=== PATIENT | male | born 1970 | race African-American/Black ===

== ENCOUNTER 2018-03-31 10:34 | Inpatient (IN) | payer OTHER ==
[2018-03-31 10:47] VITALS: BMI 19.9
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
[2018-03-31] MEDS ORDERED: MAGNESIUM HYDROX 2400MG/30ML ORAL SUSPENSION 30 ML CUP PO PRN (11:36)
[2018-03-31] MEDS ORDERED: MAG HYDROX/AL HYDROX/SIMETH 30 ML UNIT-DOSE CUP PO PRN (11:36)
[2018-03-31] MEDS ORDERED: IBUPROFEN 400 MG TABLET (FP) PO PRN (11:36)
[2018-03-31] MEDS ORDERED: chlordiazePOXIDE HCL 25 MG CAPSULE PO PRN (11:36)
[2018-03-31] MEDS ORDERED: P-EPHED 60MG/TRIPROLIDI 2.5MG TABLET PO PRN (11:36)
[2018-03-31] MEDS ORDERED: MAGNESIUM CITRATE 300 ML BOTTLE PO PRN (11:36)
[2018-03-31] MEDS ORDERED: NICOTINE POLACRILEX 2 MG GUM BUC PRN (11:36)
[2018-03-31] MEDS ORDERED: hydrOXYzine PAMOATE 25 MG CAPSULE (FP) PO PRN (11:36)
[2018-03-31] MEDS ORDERED: guaiFENesin/D-METHORPHAN HB 10 ML UNIT-DOSE CUPS PO PRN (11:36)
[2018-03-31] MEDS ORDERED: LOPERAMIDE HCL 2 MG CAPSULE PO PRN (11:36)
[2018-03-31] MEDS ORDERED: MENTHOL/PHENOL 1 EACH UD MM PRN (11:36)
[2018-03-31] MEDS: chlordiazePOXIDE HCL 25 MG CAPSULE PO SCH ×2 (17:21→22:23)
[2018-03-31] MEDS: THIAMINE HCL 100 MG TABLET (FP) PO SCH (22:23)
[2018-03-31] MEDS: MELATONIN 5 MG TABLETS PO PRN (22:23)
[2018-04-01] MEDS: chlordiazePOXIDE HCL 25 MG CAPSULE PO SCH ×4 (05:41→22:23)
[2018-04-01] MEDS: ACETAMINOPHEN 325 MG TABLET (FP) PO PRN (08:34)
[2018-04-01 10:34] LABS: ALBUMIN 3.6 g/dl (3.4-5.0); ALK PHOS 90 U/L (45-117); ANION GAP 7 MMOL/L (8-16); BILIRUBIN,TOTAL 0.6 mg/dL (0.2-1); BLOOD UREA NITROGEN 12 mg/dL (7-18); CALCIUM 8.9 mg/dL (8.5-10.1); CHLORIDE 107 mmol/L (98-107); CO2 25 mmol/L (21-32); CREATININE 0.9 mg/dL (0.55-1.3); GLUCOSE,RANDOM 106 mg/dL (74-106); SGOT/AST 25 U/L (15-37); SGPT/ALT 17 U/L (13-61); SODIUM 139 mmol/L (136-145); TOT PROT 7.5 g/dl (6.4-8.2)
[2018-04-01 11:00] LABS: HEMATOCRIT 38.4 % (35.4-49); HEMOGLOBIN 12.5 GM/dL (11.7-16.9); MCH 31.6 pg (25.7-33.7); MCHC 32.5 g/dl (32.0-35.9); MEAN CELL VOLUME 97.4 fl (80-96); MEAN PLT VOLUME 8.6 fl (7.5-11.1); PLATELET COUNT 192 K/MM3 (134-434); RBC 3.94 M/mm3 (4.00-5.60); RDW 13.7 % (11.9-15.9); WHITE BLOOD COUNT 5.4 K/mm3 (4.0-10.0)
[2018-04-01] MEDS: PRENATAL VITAMINS W/ FOLIC ACID TABLET (FP) PO SCH (11:03)
--- NOTE | 2018-04-01 15:38 | PN ---
S CIWA - CIWA Score Nausea/Vomitin Muscle Tremors: 4-Moderate,w/Arms Extend Anxiety: 4-Mod. Anxious/Guarded Agitation: 2 Paroxysmal Sweats: 3 Orientation: 0-Oriented Tacttile Disturbances: 1-Very Mild Itch/Numbness Auditory Disturbances: 0-None Visual Disturbances: 0-None Headache: 1-Very Mild CIWA-Ar Total Score: 17 BHS Progress Note (SOAP) Subjective: Sweating, headache 11/17, interrupted sleep Objective: 04/01/18 15:37 Last Vital Signs Temp Pulse Resp BP Pulse Ox 97.1 F L 104 H 16 124/79 04/01/18 13:43 04/01/18 13:43 04/01/18 13:43 04/01/18 13:43 Laboratory Tests 04/01/18 04/01/18 04/01/18 07:30 07:30 07:30 WBC 5.4 RBC 3.94 L Hgb 12.5 Hct 38.4 MCV 97.4 H MCH 31.6 MCHC 32.5 RDW 13.7 Plt Count 192 D MPV 8.6 Sodium 139 Potassium 4.0 Chloride 107 Carbon Dioxide 25 Anion Gap 7 L BUN 12 Creatinine 0.9 Creat Clearance w eGFR > 60 Random Glucose 106 Calcium 8.9 Total Bilirubin 0.6 AST 25 ALT 17 Alkaline Phosphatase 90 Total Protein 7.5 Albumin 3.6 RPR Titer Nonreactive Labs reviewed Assessment: 04/01/18 15:38 Withdrawal symptoms Plan: Continue detox Encouraged PO water hydration
[2018-04-01] MEDS: MELATONIN 5 MG TABLETS PO PRN (22:23)
[2018-04-01] MEDS: THIAMINE HCL 100 MG TABLET (FP) PO SCH (22:23)
[2018-04-02] MEDS: chlordiazePOXIDE HCL 25 MG CAPSULE PO SCH ×2 (05:17→10:41)
[2018-04-02] MEDS: ACETAMINOPHEN 325 MG TABLET (FP) PO PRN ×2 (09:24→13:14)
[2018-04-02] MEDS: PRENATAL VITAMINS W/ FOLIC ACID TABLET (FP) PO SCH (10:41)
--- NOTE | 2018-04-02 17:03 | PN ---
[facility] CIWA - CIWA Score Nausea/Vomitin-Mild Nausea/No Vomiting Muscle Tremors: 3 Anxiety: 3 Agitation: 2 Paroxysmal Sweats: 3 Orientation: 0-Oriented Tacttile Disturbances: 0-None Auditory Disturbances: 0-None Visual Disturbances: 0-None Headache: 0-None Present CIWA-Ar Total Score: 12 S Progress Note (SOAP) Subjective: sweats sleep disturbance Objective: 04/02/18 17:00 In bed sleeping arousable to verbal stimuli' A & O x 3 Vital Signs Temperature 96.6 F L 04/02/18 13:07 Pulse Rate 99 H 04/02/18 13:07 Respiratory Rate 16 04/02/18 13:07 Blood Pressure 133/83 04/02/18 13:07 O2 Sat by Pulse Oximetry (%) Laboratory Last Values WBC 5.4 K/mm3 (4.0-10.0) 04/01/18 07:30 RBC 3.94 M/mm3 (4.00-5.60) L 04/01/18 07:30 Hgb 12.5 GM/dL (11.7-16.9) 04/01/18 07:30 Hct 38.4 % (35.4-49) 04/01/18 07:30 MCV 97.4 fl (80-96) H 04/01/18 07:30 MCH 31.6 pg (25.7-33.7) 04/01/18 07:30 MCHC 32.5 g/dl (32.0-35.9) 04/01/18 07:30 RDW 13.7 % (11.9-15.9) 04/01/18 07:30 Plt Count 192 K/MM3 (134-434) D 04/01/18 07:30 MPV 8.6 fl (7.5-11.1) 04/01/18 07:30 Sodium 139 mmol/L (136-145) 04/01/18 07:30 Potassium 4.0 mmol/L (3.5-5.1) 04/01/18 07:30 Chloride 107 mmol/L (98-107) 04/01/18 07:30 Carbon Dioxide 25 mmol/L (21-32) 04/01/18 07:30 Anion Gap 7 MMOL/L (8-16) L 04/01/18 07:30 BUN 12 mg/dL (7-18) 04/01/18 07:30 Creatinine 0.9 mg/dL (0.55-1.3) 04/01/18 07:30 Creat Clearance w eGFR > 60 (>60) 04/01/18 07:30 Random Glucose 106 mg/dL (74-106) 04/01/18 07:30 Calcium 8.9 mg/dL (8.5-10.1) 04/01/18 07:30 Total Bilirubin 0.6 mg/dL (0.2-1) 04/01/18 07:30 AST 25 U/L (15-37) 04/01/18 07:30 ALT 17 U/L (13-61) 04/01/18 07:30 Alkaline Phosphatase 90 U/L (45-117) 04/01/18 07:30 Total Protein 7.5 g/dl (6.4-8.2) 04/01/18 07:30 Albumin 3.6 g/dl (3.4-5.0) 04/01/18 07:30 RPR Titer Nonreactive (NONREACTIVE) 04/01/18 07:30 pending UA Assessment: 04/02/18 17:01 withdrawal sx Plan: continue detox
[2018-04-02] MEDS: chlordiazePOXIDE 5 MG CAPSULE PO SCH ×2 (17:24→22:46)
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
[2018-04-02] MEDS: THIAMINE HCL 100 MG TABLET (FP) PO SCH (22:46)
[2018-04-02] MEDS: MIRTAZAPINE 15 MG TABLET (FP) PO SCH (22:46)
[2018-04-03] MEDS: chlordiazePOXIDE 5 MG CAPSULE PO SCH ×2 (06:41→10:10)
[2018-04-03] MEDS: PRENATAL VITAMINS W/ FOLIC ACID TABLET (FP) PO SCH (10:10)
--- NOTE | 2018-04-03 14:43 | PN ---
S Progress Note (SOAP) Subjective: Interrupted sleep, anxious, feeling depressed (denies SI/HI, AH, VH), stated he was seen by psychiatrist yesterday and started on medication Objective: 04/03/18 14:42 Last Vital Signs Temp Pulse Resp BP Pulse Ox 97.1 F L 117 H 20 123/85 04/03/18 13:16 04/03/18 13:16 04/03/18 13:16 04/03/18 13:16 Laboratory Tests 04/01/18 04/01/18 04/01/18 07:30 07:30 07:30 WBC 5.4 RBC 3.94 L Hgb 12.5 Hct 38.4 MCV 97.4 H MCH 31.6 MCHC 32.5 RDW 13.7 Plt Count 192 D MPV 8.6 Sodium 139 Potassium 4.0 Chloride 107 Carbon Dioxide 25 Anion Gap 7 L BUN 12 Creatinine 0.9 Creat Clearance w eGFR > 60 Random Glucose 106 Calcium 8.9 Total Bilirubin 0.6 AST 25 ALT 17 Alkaline Phosphatase 90 Total Protein 7.5 Albumin 3.6 RPR Titer Nonreactive Labs reviewed Assessment: 04/03/18 14:43 Withdrawal symptoms Plan: Continue detox Encouraged PO water intake
[2018-04-03] MEDS: chlordiazePOXIDE HCL 10 MG CAPSULE PO SCH ×2 (17:40→22:09)
[2018-04-03] MEDS: THIAMINE HCL 100 MG TABLET (FP) PO SCH (22:09)
[2018-04-03] MEDS: MELATONIN 5 MG TABLETS PO PRN (22:09)
[2018-04-03] MEDS: MIRTAZAPINE 15 MG TABLET (FP) PO SCH (22:09)
[2018-04-04] MEDS: chlordiazePOXIDE HCL 10 MG CAPSULE PO SCH (05:48)
[2018-04-04 06:34] VITALS: BP 124/74; PULSE 78; TEMP 97.1
--- NOTE | 2018-04-04 17:09 | DS ---
[facility] Detox Discharge Summary Admission Date: 03/31/18 Discharge Date: 04/04/18 - History Present History: Alcohol Dependence, Cannabis Dependence Additional Comments: PATIENT REFERRED TO [facility] OUTPAT[facility] ([place], [place]) FOR AFTERCARE. PATIENT WAS DISCHARGED FROM DETOX UNIT IN STABLE MEDICAL CONDITION. Pertinent Past History: HTN, History of Anemia, History of Depression, G.E.R.D., Nicotine Dependence. - Physical Exam Results Vital Signs: Vital Signs Temperature 97.1 F L 04/04/18 06:33 Pulse Rate 78 04/04/18 06:33 Respiratory Rate 18 04/04/18 06:33 Blood Pressure 124/74 04/04/18 06:33 O2 Sat by Pulse Oximetry (%) Pertinent Admission Physical Exam Findings: WITHDRAWAL SYMPTOMS. Laboratory Tests 04/01/18 04/01/18 04/01/18 07:30 07:30 07:30 WBC 5.4 RBC 3.94 L Hgb 12.5 Hct 38.4 MCV 97.4 H MCH 31.6 MCHC 32.5 RDW 13.7 Plt Count 192 D MPV 8.6 Sodium 139 Potassium 4.0 Chloride 107 Carbon Dioxide 25 Anion Gap 7 L BUN 12 Creatinine 0.9 Creat Clearance w eGFR > 60 Random Glucose 106 Calcium 8.9 Total Bilirubin 0.6 AST 25 ALT 17 Alkaline Phosphatase 90 Total Protein 7.5 Albumin 3.6 RPR Titer Nonreactive LABS NOTED. - Treatment Hospital Course: Detox Protocol Followed, Detoxed Safely, Responded well, Discharged Condition Good Patient has Accepted a Rehab Referral to: PT. REFERRED TO '[facility] ([place], [place] FOR AFTERCARE. - Medication Discharge Medications: Ambulatory Orders Sertraline HCl [Zoloft -] 50 mg PO DAILY #30 tablet 10/27/17 - Diagnosis (1) Alcohol dependence with uncomplicated withdrawal Status: Acute (2) GERD (gastroesophageal reflux disease) Status: Chronic Qualifiers: Esophagitis presence: esophagitis presence not specified Qualified Code(s) : K21.9 - Gastro-esophageal reflux disease without esophagitis (3) HTN (hypertension) Status: Chronic Qualifiers: Hypertension type: unspecified Qualified Code(s): I10 - Essential (primary ) hypertension (4) Nicotine dependence Status: Chronic Qualifiers: Nicotine product type: cigarettes Substance use status: uncomplicated Qualified Code(s): F17.210 - Nicotine dependence, cigarettes, uncomplicated (5) Cannabis dependence, uncomplicated Status: Chronic (6) History of anemia Status: Chronic - AMA Did Patient Leave Against Medical Advice: No
== END 2018-04-04 09:05 | disposition home or self-care (01) | DRG 775 ==
LOC: YASAS 10:34 → Y3N 11:40
PROC: HZ2ZZZZ Detoxification Services for Substance Abuse Treatment (ICD-10-PCS; principal; 2018-03-31)
DX: F10.230 Alcohol dependence with withdrawal, uncomplicated (principal); F12.20 Cannabis dependence, uncomplicated; F17.210 Nicotine dependence, cigarettes, uncomplicated; F31.9 Bipolar disorder, unspecified; F19.24 Other psychoactive substance dependence with psychoactive substance-induced mood disorder; I10 Essential (primary) hypertension; K21.9 Gastro-esophageal reflux disease without esophagitis; G47.00 Insomnia, unspecified; Z59.0 Homelessness
CPT/HCPCS: 36415; 80053; 85027; 86593

== ENCOUNTER 2018-05-11 11:47 | Inpatient (IN) | payer OTHER ==
[2018-05-11 12:23] VITALS: BMI 19.3
--- NOTE | 2018-05-11 17:01 | HP ---
CIWA Score Nausea/Vomitin-Mild Nausea/No Vomiting Muscle Tremors: 3 Anxiety: 3 Agitation: 2 Paroxysmal Sweats: 2 Orientation: 0-Oriented Tacttile Disturbances: 0-None Auditory Disturbances: 0-None Visual Disturbances: 0-None Headache: 2-Mild CIWA-Ar Total Score: 13 - Admission Criteria OASAS Guidelines: Admission for Medically Managed Detox: Requires at least one of the followin. CIWA greater than 12 2. Seizures within the past 24 hours 3. Delirium tremens within the past 24 hours 4. Hallucinations within the past 24 hours 5. Acute intervention needed for co occurring medical disorder 6. Acute intervention needed for co occurring psychiatric disorder 7. Severe withdrawal that cannot be handled at a lower level of care (continued vomiting, continued diarrhea, abnormal vital signs) requiring intravenous medication and/or fluids 8. Patient presents the following: CIWA greater than 12 Admission Criteria Met: Admission criteria met Admission ROS [facility] Chief Complaint: "here for detox for alcohol, THC" 47 yo with no medical problems, has no PCP. Pt is homeless from [place]. Says he has depression- not taking meds. Pt states he was recently diagnosed with pneumonia- had only one of two antibiotics ordered- azithromycin and could take cefodoxime alcohol- 3 6 packs of beer, occ other types of liquour- no h/o seizures, DT's THC- every day DUR- no controlled meds AMANDA- 0.249, THC and BZO in urine Allergies/Adverse Reactions: Allergies Allergy/AdvReac Type Severity Reaction Status Date / Time No Known Allergies Allergy Verified 05/11/18 15:28 - Ebola screening Have you traveled outside of the country in the last 21 days: No Have you had contact with anyone from an Ebola affected area: No Have you been sick,other than usual withdrawal symptoms: No Do you have a fever: No - Review of Systems Constitutional: No Symptoms Reported EENT: reports: No Symptoms Reported Respiratory: reports: No Symptoms reported Cardiac: reports: No Symptoms Reported GI: reports: No Symptoms Reported : reports: No Symptoms Reported Musculoskeletal: reports: No Symptoms Reported Integumentary: reports: Lesions, Pruritus (itchy, red, papular lesions on back, arms.) Neuro: reports: No Symptoms reported Endocrine: reports: No Symptoms Reported Hematology: reports: No Symptoms Reported Psychiatric: reports: No Sypmtoms Reported Other Systems: Reviewed and Negative Patient History - Patient Medical History Hx Anemia: No Hx Asthma: No Hx Chronic Obstructive Pulmonary Disease (COPD): No Hx Cancer: No Hx Cardiac Disorders: No Hx Hypertension: No Hx Hypercholesterolemia: No Hx Pacemaker: No HX Cerebrovascular Accident: No Hx Seizures: No Hx Diabetes: No Hx Gastrointestinal Disorders: Yes (acid reflux) Hx Liver Disease: No Hx Genitourinary Disorders: No Hx Sexually Transmitted Disorders: No Hx Renal Disease (ESRD): No Hx Thyroid Disease: No Hx Human Immunodeficiency Virus (HIV): No (NEGATIVE HX) Hx Hepatitis C: No Hx Depression: Yes Hx Suicide Attempt: No Hx Bipolar Disorder: Yes (i have mood swings) Hx Schizophrenia: No Other Medical History: pt was recently treated pneumonia - Patient Surgical History Past Surgical History: Yes Hx Neurologic Surgery: No Hx Cataract Extraction: No Hx Cardiac Surgery: No Hx Lung Surgery: No Hx Breast Surgery: No Hx Breast Biopsy: No Hx Abdominal Surgery: No Hx Appendectomy: Yes Hx Cholecystectomy: No Hx Genitourinary Surgery: No Hx Section: No Hx Orthopedic Surgery: No Other Surgical History: tonsilectomy at age 7/left eye trauma in 2017 Anesthesia Reaction: No - PPD History Previous Implant?: Yes Documented Results: Negative w/proof Implanted On Prior R Admission?: Yes Date: 10/28/17 Results: 0 mm - Smoking Cessation Smoking history: Current some day smoker Have you smoked in the past 12 months: Yes Aproximately how many cigarettes per day: 3 Hx Chewing Tobacco Use: No Initiated information on smoking cessation: Yes 'Breaking Loose' booklet given: 05/11/18 - Substances Abused Alcohol-beer Route: Oral Frequency: Daily Amount used: 2-63 6 pks. Age of first use: 17 Date of Last Use: 05/11/18 Marijuana Route: Smoking Frequency: Daily Amount used: $10 Age of first use: 10 Date of Last Use: 05/10/18 Family Disease History - Family Disease History Family Disease History: Diabetes: Father (HTN/ALCOHOLISM-), Mother (HTN/ ALCOHOLISM-), Other: Grandparent (-ALZHEIMERSDECEASED), Father, Mother Admission Physical Exam [facility] - Vital Signs Vital Signs: Vital Signs - 24 hr 05/11/18 12:21 Temperature 97.9 F Pulse Rate 121 H Respiratory 18 Rate Blood Pressure 105/76 - Physical General Appearance: Yes: Disheveled, Thin, Irritable HEENTM: Yes: Within Normal Limits, Hearing grossly Normal, Normal Voice Respiratory: Yes: Within Normal Limits Neck: Yes: Within Normal Limits Cardiology: Yes: Within Normal Limits Abdominal: Yes: Within Normal Limits Genitourinary: Yes: Within Normal Limits Extremities: Yes: Within Normal Limits Neurological: Yes: Within Normal Limits - Diagnostic (1) Scabies Current Visit: Yes Status: Acute (2) Alcohol dependence with uncomplicated withdrawal Current Visit: No Status: Acute (3) Cannabis dependence, uncomplicated Current Visit: No Status: Chronic [facility]HS Breath Alcohol Content Breath Alcohol Content: 0.249 Urine Drug Screen - Results Drug Screen Negative: No Urine Drug Screen Results: THC-Marijuana, BZO-Benzodiazepines
[2018-05-11] MEDS ORDERED: chlordiazePOXIDE HCL 25 MG CAPSULE PO PRN (17:18)
[2018-05-11] MEDS ORDERED: MAG HYDROX/AL HYDROX/SIMETH 30 ML UNIT-DOSE CUP PO PRN (17:19)
[2018-05-11] MEDS ORDERED: guaiFENesin/D-METHORPHAN HB 10 ML UNIT-DOSE CUPS PO PRN (17:19)
[2018-05-11] MEDS ORDERED: MAGNESIUM CITRATE 300 ML BOTTLE PO PRN (17:19)
[2018-05-11] MEDS ORDERED: NICOTINE POLACRILEX 4 MG GUM BC PRN (17:19)
[2018-05-11] MEDS ORDERED: MAGNESIUM HYDROX 2400MG/30ML ORAL SUSPENSION 30 ML CUP PO PRN (17:19)
[2018-05-11] MEDS ORDERED: MENTHOL/PHENOL 1 EACH UD MM PRN (17:19)
[2018-05-11] MEDS ORDERED: LOPERAMIDE HCL 2 MG CAPSULE PO PRN (17:19)
[2018-05-11] MEDS ORDERED: P-EPHED 60MG/TRIPROLIDI 2.5MG TABLET PO PRN (17:19)
[2018-05-11] MEDS ORDERED: chlordiazePOXIDE HCL 25 MG CAPSULE PO ONE (17:45)
[2018-05-11] MEDS ORDERED: PERMETHRIN 5% TOPICAL CREAM 60 GM TUBE TP ONE (19:00)
[2018-05-11] MEDS: THIAMINE HCL 100 MG TABLET (FP) PO SCH (23:34)
[2018-05-11] MEDS: chlordiazePOXIDE HCL 25 MG CAPSULE PO SCH (23:34)
[2018-05-12] MEDS: chlordiazePOXIDE HCL 25 MG CAPSULE PO SCH ×4 (07:18→22:12)
[2018-05-12 10:31] LABS: HEMATOCRIT 36.4 % (35.4-49); HEMOGLOBIN 12.2 GM/dL (11.7-16.9); MCH 32.6 pg (25.7-33.7); MCHC 33.6 g/dl (32.0-35.9); MEAN CELL VOLUME 97.3 fl (80-96); MEAN PLT VOLUME 8.8 fl (7.5-11.1); PLATELET COUNT 118 K/MM3 (134-434); RBC 3.74 M/mm3 (4.00-5.60); RDW 14.1 % (11.9-15.9); WHITE BLOOD COUNT 2.6 K/mm3 (4.0-10.0)
[2018-05-12] MEDS: PRENATAL VITAMINS W/ FOLIC ACID TABLET (FP) PO SCH (10:54)
[2018-05-12 10:57] LABS: ALK PHOS 92 U/L (45-117); ANION GAP 12 MMOL/L (8-16); BILIRUBIN,TOTAL 0.6 mg/dL (0.2-1); BLOOD UREA NITROGEN 6 mg/dL (7-18); CHLORIDE 108 mmol/L (98-107); CO2 23 mmol/L (21-32); CREATININE 0.8 mg/dL (0.55-1.3); GLUCOSE,RANDOM 75 mg/dL (74-106); POTASSIUM 4.1 mmol/L (3.5-5.1); SGOT/AST 57 U/L (15-37); SGPT/ALT 32 U/L (13-61); SODIUM 143 mmol/L (136-145); TOT PROT 7.9 g/dl (6.4-8.2)
--- NOTE | 2018-05-12 13:44 | PN ---
S CIWA - CIWA Score Nausea/Vomitin-Mild Nausea/No Vomiting Muscle Tremors: 2 Anxiety: 1-Mildly Anxious Agitation: 1-Slight > Activity Paroxysmal Sweats: 2 Orientation: 0-Oriented Tacttile Disturbances: 1-Very Mild Itch/Numbness Auditory Disturbances: 1-Very Mild Visual Disturbances: 1-Very Mild Sensitivity Headache: 3-Moderate CIWA-Ar Total Score: 13 BHS Progress Note (SOAP) Subjective: FATIGUE,HEADACHE,GENERALIZED BODY ACHE,CHILLS AND ANXIETY Objective: 05/12/18 13:43 Last Vital Signs Temp Pulse Resp BP Pulse Ox 97.9 F 86 18 143/93 05/12/18 09:25 05/12/18 09:25 05/12/18 09:25 05/12/18 09:25 Laboratory Last Values WBC 2.6 K/mm3 (4.0-10.0) L 05/12/18 08:00 RBC 3.74 M/mm3 (4.00-5.60) L 05/12/18 08:00 Hgb 12.2 GM/dL (11.7-16.9) 05/12/18 08:00 Hct 36.4 % (35.4-49) 05/12/18 08:00 MCV 97.3 fl (80-96) H 05/12/18 08:00 MCH 32.6 pg (25.7-33.7) 05/12/18 08:00 MCHC 33.6 g/dl (32.0-35.9) 05/12/18 08:00 RDW 14.1 % (11.9-15.9) 05/12/18 08:00 Plt Count 118 K/MM3 (134-434) L D 05/12/18 08:00 MPV 8.8 fl (7.5-11.1) 05/12/18 08:00 Sodium 143 mmol/L (136-145) 05/12/18 08:00 Potassium 4.1 mmol/L (3.5-5.1) 05/12/18 08:00 Chloride 108 mmol/L (98-107) H 05/12/18 08:00 Carbon Dioxide 23 mmol/L (21-32) 05/12/18 08:00 Anion Gap 12 MMOL/L (8-16) 05/12/18 08:00 BUN 6 mg/dL (7-18) L 05/12/18 08:00 Creatinine 0.8 mg/dL (0.55-1.3) 05/12/18 08:00 Creat Clearance w eGFR > 60 (>60) 05/12/18 08:00 Random Glucose 75 mg/dL (74-106) 05/12/18 08:00 Calcium 9.0 mg/dL (8.5-10.1) 05/12/18 08:00 Total Bilirubin 0.6 mg/dL (0.2-1) 05/12/18 08:00 AST 57 U/L (15-37) H 05/12/18 08:00 ALT 32 U/L (13-61) 05/12/18 08:00 Alkaline Phosphatase 92 U/L (45-117) 05/12/18 08:00 Total Protein 7.9 g/dl (6.4-8.2) 05/12/18 08:00 Albumin 4.0 g/dl (3.4-5.0) 05/12/18 08:00 LABS NOTED Assessment: 05/12/18 13:44 WITHDRAWAL SX Plan: CONTINUE DETOX
[2018-05-12] MEDS: IBUPROFEN 400 MG TABLET (FP) PO PRN (13:57)
--- NOTE | 2018-05-12 16:19 | CONSULT ---
[facility] Psychiatric Consult - Data Date of interview: 05/12/18 Admission source: [facility] Identifying data: This is one of multiple admissions to [facility] for this 47 y/ o AA male, now retained on [facility] for detoxification (alcohol, cannabis). Patient is single without dependents, homeless, unemployed and supported on Public Assistance. Substance Abuse History: Discussed in this session. Patient confirms the use of alcohol, nicotine and cannabis. Details in current [facility] report as follows : Smoking history: Current some day smoker. Have you smoked in the past 12 months : Yes. Aproximately how many cigarettes per day: 3. Hx Chewing Tobacco Use: No. Initiated information on smoking cessation: Yes. 'Breaking Loose' booklet given: 05/11/18. - Substances Abused. Alcohol-beer. Route: Oral. Frequency: Daily. Amount used: 2-63 6 pks. Age of first use: 17. Date of Last Use: 05/11/18. Marijuana. Route: Smoking. Frequency: Daily. Amount used: $10. Age of first use: 10. Date of Last Use: 05/10/18 Medical History: Remarkable for anemia, GERD, antecedent of trauma to left eye ( underwent eye surgery), hypertension and history of appendectomy + tonsillectomy (childhood). Psychiatric History: Patient is questionable historian. Denies history of psychiatric hospitalizations but admits to having received treatment, in the past, for " depression " at another substance abuse treatment institution. Mr Pastrana denies having contact with psychiatrist/therapists. off medications for months. Patient denies history of suicide attempts. Physical/Sexual Abuse/Trauma History: Not discussed (patient uncooperative). Additional Comment: Urine Drug Screen Results: THC-Marijuana, BZO- Benzodiazepines. Noted. Mental Status Exam - Mental Status Exam Alert and Oriented to: Time, Place, Person Cognitive Function: Grossly Intact Patient Appearance: Unkempt, Disheveled Mood: Angry, Nervous, Withdrawn, Irritable Affect: Mood Congruent Patient Behavior: Fatigued, Uncooperative Speech Pattern: Clear Voice Loudness: Normal Thought Process: Goal Oriented Thought Disorder: Not Present Hallucinations: Denies Suicidal Ideation: Denies Homicidal Ideation: Denies Insight/Judgement: Poor Sleep: Fair Appetite: Good (empty foodtray seen at bedside) Gait/Station: Other (not observed ; observed resting in bed) Psychiatric Findings - Problem List ([place] 1, 2,3) (1) Alcohol dependence with uncomplicated withdrawal Current Visit: Yes Status: Acute (2) Cannabis dependence, uncomplicated Current Visit: Yes Status: Chronic (3) Nicotine dependence Current Visit: Yes Status: Chronic Qualifiers: Nicotine product type: cigarettes Substance use status: uncomplicated Qualified Code(s): F17.210 - Nicotine dependence, cigarettes, uncomplicated (4) Substance induced mood disorder Current Visit: Yes Status: Chronic - Initial Treatment Plan Initial Treatment Plan: Psychoeducation is not suitable at this time (patient is angry, irritable). Deferred until patient gets cooperative with staff. Sleep hygiene. Detoxification. Support. AA meetings. Observation.
[2018-05-12] MEDS: THIAMINE HCL 100 MG TABLET (FP) PO SCH (22:12)
[2018-05-12] MEDS: MELATONIN 5 MG TABLETS PO PRN (22:12)
[2018-05-13] MEDS: chlordiazePOXIDE HCL 25 MG CAPSULE PO SCH ×3 (06:17→17:31)
[2018-05-13] MEDS: ACETAMINOPHEN 325 MG TABLET (FP) PO PRN ×2 (08:34→17:33)
[2018-05-13] MEDS: PRENATAL VITAMINS W/ FOLIC ACID TABLET (FP) PO SCH (10:28)
--- NOTE | 2018-05-13 13:23 | PN ---
S CIWA - CIWA Score Muscle Tremors: None Anxiety: 0-No Anxiety, at Ease Agitation: 0-Normal Activity Paroxysmal Sweats: No Perspiration Orientation: 0-Oriented Tacttile Disturbances: 0-None Auditory Disturbances: 0-None Visual Disturbances: 0-None Headache: 0-None Present BHS Progress Note (SOAP) Subjective: pt walking in unit, no complaints O: Vital Signs - 24 hr 05/12/18 05/12/18 05/12/18 13:30 13:58 14:00 Temperature 97.9 F Pulse Rate 74 76 76 Respiratory 16 Rate Blood Pressure 118/69 05/12/18 05/12/18 05/12/18 14:30 15:00 15:30 Temperature Pulse Rate 75 78 86 Respiratory Rate Blood Pressure 05/12/18 05/12/18 05/12/18 16:00 16:30 17:00 Temperature Pulse Rate 82 76 77 Respiratory 20 20 20 Rate Blood Pressure 05/12/18 05/12/18 05/12/18 17:30 17:43 18:00 Temperature 97.7 F Pulse Rate 78 76 74 Respiratory 20 20 20 Rate Blood Pressure 133/79 05/12/18 05/12/18 05/13/18 18:30 22:22 07:24 Temperature 97.7 F 97.7 F Pulse Rate 72 73 66 Respiratory 20 16 18 Rate Blood Pressure 148/89 121/76 05/13/18 09:37 Temperature 98.6 F Pulse Rate 75 Respiratory 16 Rate Blood Pressure 159/102 H Laboratory Tests 05/12/18 05/12/18 05/12/18 08:00 08:00 08:00 WBC 2.6 L RBC 3.74 L Hgb 12.2 Hct 36.4 MCV 97.3 H MCH 32.6 MCHC 33.6 RDW 14.1 Plt Count 118 L D MPV 8.8 Sodium 143 Potassium 4.1 Chloride 108 H Carbon Dioxide 23 Anion Gap 12 BUN 6 L Creatinine 0.8 Creat Clearance w eGFR > 60 Random Glucose 75 Calcium 9.0 Total Bilirubin 0.6 AST 57 H ALT 32 Alkaline Phosphatase 92 Total Protein 7.9 Albumin 4.0 RPR Titer Nonreactive BP intermittently high a/p: continue alcohol detox protocol continue monitor BP
[2018-05-13] MEDS: chlordiazePOXIDE 5 MG CAPSULE PO SCH (22:09)
[2018-05-13] MEDS: THIAMINE HCL 100 MG TABLET (FP) PO SCH (22:09)
[2018-05-13] MEDS: MELATONIN 5 MG TABLETS PO PRN (22:09)
[2018-05-14] MEDS: chlordiazePOXIDE 5 MG CAPSULE PO SCH ×3 (05:07→17:12)
[2018-05-14] MEDS: IBUPROFEN 400 MG TABLET (FP) PO PRN (08:37)
[2018-05-14] MEDS: PRENATAL VITAMINS W/ FOLIC ACID TABLET (FP) PO SCH (10:16)
--- NOTE | 2018-05-14 10:16 | PN ---
BHS Progress Note (SOAP) Subjective: feeling better sweats Objective: 05/14/18 10:15 Vital Signs Temperature 98.1 F 05/14/18 09:14 Pulse Rate 100 H 05/14/18 09:14 Respiratory Rate 18 05/14/18 09:14 Blood Pressure 112/74 05/14/18 09:14 O2 Sat by Pulse Oximetry (%) aaox3 ambulating no acute distress Assessment: 05/14/18 10:15 mild withdrawal sx Plan: continue detox increase fluids d/c in am
[2018-05-14] MEDS: MELATONIN 5 MG TABLETS PO PRN (22:23)
[2018-05-14] MEDS: chlordiazePOXIDE HCL 10 MG CAPSULE PO SCH (22:23)
[2018-05-14] MEDS: THIAMINE HCL 100 MG TABLET (FP) PO SCH (22:23)
[2018-05-15 00:31] LABS: URINE APPEARANCE CLEAR; URINE BILIRUBIN NEGATIVE (<2.0 mg/dL); URINE COLOR LTYELLOW; URINE GLUCOSE (UA) NEGATIVE (NEGATIVE); URINE KETONE NEGATIVE (NEGATIVE); URINE LEUK ESTERASE NEGATIVE (NEGATIVE); URINE NITRITE NEGATIVE (NEGATIVE); URINE PROTEIN NEGATIVE (NEGATIVE); URINE UROBILINOGEN NEGATIVE mg/dL (0.2-1.0)
[2018-05-15] MEDS: chlordiazePOXIDE HCL 10 MG CAPSULE PO SCH (05:44)
[2018-05-15 06:13] VITALS: BP 128/76; PULSE 67; TEMP 96.3
--- NOTE | 2018-05-15 09:20 | DS ---
[facility] Detox Discharge Summary Admission Date: 05/11/18 Discharge Date: 05/15/18 - History Present History: Alcohol Dependence, Cannabis Dependence - Physical Exam Results Vital Signs: Vital Signs Temperature 96.3 F L 05/15/18 06:00 Pulse Rate 67 05/15/18 06:00 Respiratory Rate 16 05/15/18 06:00 Blood Pressure 128/76 05/15/18 06:00 O2 Sat by Pulse Oximetry (%) - Treatment Hospital Course: Detox Protocol Followed, Detoxed Safely, Responded well, Discharged Condition Good, Rehab Referral Accepted - Diagnosis (1) Alcohol dependence with uncomplicated withdrawal Current Visit: Yes Status: Chronic (2) Cannabis dependence, uncomplicated Current Visit: Yes Status: Chronic (3) Nicotine dependence Current Visit: Yes Status: Chronic Qualifiers: Nicotine product type: cigarettes Substance use status: uncomplicated Qualified Code(s): F17.210 - Nicotine dependence, cigarettes, uncomplicated (4) Substance induced mood disorder Current Visit: Yes Status: Chronic (5) Bipolar disorder Current Visit: No Status: Chronic (6) GERD (gastroesophageal reflux disease) Current Visit: Yes Status: Chronic Qualifiers: Esophagitis presence: without esophagitis Qualified Code(s): K21.9 - Gastro -esophageal reflux disease without esophagitis (7) HTN (hypertension) Current Visit: Yes Status: Chronic Qualifiers: Hypertension type: unspecified Qualified Code(s): I10 - Essential (primary ) hypertension (8) History of depression Current Visit: No Status: Chronic - AMA Did Patient Leave Against Medical Advice: No (declined rehab; referred to new focus out patient )
== END 2018-05-15 08:50 | disposition home or self-care (01) | DRG 775 ==
LOC: YASAS 11:47 → Y6N 16:12
PROVIDERS: ADMIT Neuromusculoskeletal Medicine & OMM; ATTEND Neuromusculoskeletal Medicine & OMM
PROC: HZ2ZZZZ Detoxification Services for Substance Abuse Treatment (ICD-10-PCS; principal; 2018-05-11)
DX: F10.230 Alcohol dependence with withdrawal, uncomplicated (principal); F12.20 Cannabis dependence, uncomplicated; F17.210 Nicotine dependence, cigarettes, uncomplicated; F19.24 Other psychoactive substance dependence with psychoactive substance-induced mood disorder; F31.9 Bipolar disorder, unspecified; I10 Essential (primary) hypertension; K21.9 Gastro-esophageal reflux disease without esophagitis; Z59.0 Homelessness
CPT/HCPCS: 36415; 80053; 81003; 85027; 86593

== ENCOUNTER 2018-05-24 10:44 | Inpatient (IN) | payer OTHER ==
[2018-05-24 11:24] VITALS: BMI 19.5
--- NOTE | 2018-05-24 13:27 | HP ---
JULIEN DUMAS Rehab Assess/Revision - Admission History Admitted to Rehab from: Y [address] [place] [address] - Vital signs Vital Signs: Vital Signs Period Temp Pulse Resp BP Sys/Graham Pulse Ox Last 24 Hr 97.6 F 119 17 137/91 - Findings Detox History & Physical reviewed: Yes Concur with findings: Yes Inpatient Rehab Admission - Rehab Decision to Admit Inpatient rehab admission?: Yes - Initial Determination Are CD services needed?: Yes Free of communicable disease: Yes Not in need of hospitalization: Yes - Rehab Admission Criteria Previous failed treatment: Yes Poor recovery environment: Yes Comorbidities: Yes Lacks judgement: Yes Patient is meeting Inpatient Rehab admission criteria:: Yes
[2018-05-24] MEDS ORDERED: MAGNESIUM CITRATE 300 ML BOTTLE PO PRN (13:28)
[2018-05-24] MEDS ORDERED: guaiFENesin/D-METHORPHAN HB 10 ML UNIT-DOSE CUPS PO PRN (13:28)
[2018-05-24] MEDS ORDERED: MAG HYDROX/AL HYDROX/SIMETH 30 ML UNIT-DOSE CUP PO PRN (13:28)
[2018-05-24] MEDS ORDERED: P-EPHED 60MG/TRIPROLIDI 2.5MG TABLET PO PRN (13:28)
[2018-05-24] MEDS ORDERED: MENTHOL/PHENOL 1 EACH UD MM PRN (13:28)
[2018-05-24] MEDS ORDERED: NICOTINE POLACRILEX 4 MG GUM BUC PRN (13:28)
[2018-05-24] MEDS ORDERED: MAGNESIUM HYDROX 2400MG/30ML ORAL SUSPENSION 30 ML CUP PO PRN (13:28)
[2018-05-24] MEDS ORDERED: LOPERAMIDE HCL 2 MG CAPSULE PO PRN (13:28)
--- NOTE | 2018-05-24 13:36 | PN ---
[facility] Progress Note Note: pt was at [facility] 05/22/18 for c/o SOB and chest pain; pt had a chest x -ray was done and pt dx with PNA. pt is currently on doxycycline 100mg bid. pt has 6 days left of medication to continue to take.
[2018-05-24] MEDS: NICOTINE 7 MG/24 HOURS TOPICAL PATCH TD SCH (17:46)
[2018-05-24] MEDS: DOXYCYCLINE HYCLATE 100 MG TABLET PO SCH (21:20)
[2018-05-24] MEDS: THIAMINE HCL 100 MG TABLET (FP) PO SCH (21:20)
[2018-05-24] MEDS: MELATONIN 5 MG TABLETS PO PRN (21:21)
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
[2018-05-25] MEDS: DOXYCYCLINE HYCLATE 100 MG TABLET PO SCH ×2 (10:12→17:51)
[2018-05-25] MEDS: PRENATAL VITAMINS W/ FOLIC ACID TABLET (FP) PO SCH (10:12)
[2018-05-25] MEDS: NICOTINE 7 MG/24 HOURS TOPICAL PATCH TD SCH (10:12)
[2018-05-25 19:08] LABS: URINE APPEARANCE CLEAR; URINE BILIRUBIN NEGATIVE (<2.0 mg/dL); URINE COLOR COLORLESS; URINE GLUCOSE (UA) NEGATIVE (NEGATIVE); URINE KETONE NEGATIVE (NEGATIVE); URINE LEUK ESTERASE NEGATIVE (NEGATIVE); URINE NITRITE NEGATIVE (NEGATIVE); URINE PROTEIN NEGATIVE (NEGATIVE); URINE UROBILINOGEN NEGATIVE mg/dL (0.2-1.0)
[2018-05-25] MEDS: THIAMINE HCL 100 MG TABLET (FP) PO SCH (21:18)
[2018-05-25] MEDS: MELATONIN 5 MG TABLETS PO PRN (21:18)
[2018-05-26] MEDS: ACETAMINOPHEN 325 MG TABLET (FP) PO PRN ×2 (09:17→21:12)
[2018-05-26] MEDS: NICOTINE 7 MG/24 HOURS TOPICAL PATCH TD SCH (09:18)
[2018-05-26] MEDS: PRENATAL VITAMINS W/ FOLIC ACID TABLET (FP) PO SCH (09:18)
[2018-05-26] MEDS: DOXYCYCLINE HYCLATE 100 MG TABLET PO SCH ×2 (09:18→17:37)
[2018-05-26] MEDS: THIAMINE HCL 100 MG TABLET (FP) PO SCH (21:11)
[2018-05-26] MEDS: MELATONIN 5 MG TABLETS PO PRN (21:11)
[2018-05-27] MEDS: PRENATAL VITAMINS W/ FOLIC ACID TABLET (FP) PO SCH (09:46)
[2018-05-27] MEDS: NICOTINE 7 MG/24 HOURS TOPICAL PATCH TD SCH (09:46)
[2018-05-27] MEDS: DOXYCYCLINE HYCLATE 100 MG TABLET PO SCH ×2 (09:46→17:07)
[2018-05-27] MEDS: THIAMINE HCL 100 MG TABLET (FP) PO SCH (21:09)
[2018-05-27] MEDS: IBUPROFEN 400 MG TABLET (FP) PO PRN (21:10)
[2018-05-27] MEDS: MELATONIN 5 MG TABLETS PO PRN (21:54)
[2018-05-27] MEDS: hydrOXYzine PAMOATE 50 MG CAPSULE (FP) PO PRN (21:54)
[2018-05-28] MEDS: DOXYCYCLINE HYCLATE 100 MG TABLET PO SCH ×2 (09:27→17:32)
[2018-05-28] MEDS: PRENATAL VITAMINS W/ FOLIC ACID TABLET (FP) PO SCH (09:27)
[2018-05-28] MEDS: NICOTINE 7 MG/24 HOURS TOPICAL PATCH TD SCH (09:27)
[2018-05-28] MEDS: ACETAMINOPHEN 325 MG TABLET (FP) PO PRN ×2 (09:28→21:18)
[2018-05-28] MEDS: THIAMINE HCL 100 MG TABLET (FP) PO SCH (21:18)
[2018-05-28] MEDS: MELATONIN 5 MG TABLETS PO PRN (21:19)
[2018-05-29] MEDS: DOXYCYCLINE HYCLATE 100 MG TABLET PO SCH ×2 (09:44→17:53)
[2018-05-29] MEDS: NICOTINE 7 MG/24 HOURS TOPICAL PATCH TD SCH (09:44)
[2018-05-29] MEDS: PRENATAL VITAMINS W/ FOLIC ACID TABLET (FP) PO SCH (09:44)
[2018-05-29] MEDS: ACETAMINOPHEN 325 MG TABLET (FP) PO PRN ×2 (09:46→17:53)
[2018-05-29] MEDS: MELATONIN 5 MG TABLETS PO PRN (21:13)
[2018-05-29] MEDS: THIAMINE HCL 100 MG TABLET (FP) PO SCH (21:13)
[2018-05-29] MEDS: hydrOXYzine PAMOATE 50 MG CAPSULE (FP) PO PRN (21:14)
[2018-05-29] MEDS: IBUPROFEN 400 MG TABLET (FP) PO PRN (21:14)
[2018-05-30] MEDS: PRENATAL VITAMINS W/ FOLIC ACID TABLET (FP) PO SCH (09:55)
[2018-05-30] MEDS: NICOTINE 7 MG/24 HOURS TOPICAL PATCH TD SCH (09:55)
[2018-05-30] MEDS: DOXYCYCLINE HYCLATE 100 MG TABLET PO SCH (09:55)
[2018-05-30] MEDS: ACETAMINOPHEN 325 MG TABLET (FP) PO PRN (09:56)
[2018-05-30] MEDS: IBUPROFEN 400 MG TABLET (FP) PO PRN (17:51)
[2018-05-30] MEDS: hydrOXYzine PAMOATE 50 MG CAPSULE (FP) PO PRN (17:51)
[2018-05-30] MEDS: MELATONIN 5 MG TABLETS PO PRN (21:17)
[2018-05-30] MEDS: THIAMINE HCL 100 MG TABLET (FP) PO SCH (21:17)
[2018-05-31] MEDS: PRENATAL VITAMINS W/ FOLIC ACID TABLET (FP) PO SCH (09:58)
[2018-05-31] MEDS: IBUPROFEN 400 MG TABLET (FP) PO PRN ×2 (09:59→21:28)
[2018-05-31] MEDS: NICOTINE 7 MG/24 HOURS TOPICAL PATCH TD SCH (11:40)
[2018-05-31] MEDS: MELATONIN 5 MG TABLETS PO PRN (21:28)
[2018-05-31] MEDS: THIAMINE HCL 100 MG TABLET (FP) PO SCH (21:28)
[2018-06-01] MEDS: IBUPROFEN 400 MG TABLET (FP) PO PRN ×2 (06:52→15:48)
[2018-06-01] MEDS: PRENATAL VITAMINS W/ FOLIC ACID TABLET (FP) PO SCH (10:07)
[2018-06-01] MEDS: NICOTINE 7 MG/24 HOURS TOPICAL PATCH TD SCH (10:07)
[2018-06-01] MEDS: ACETAMINOPHEN 325 MG TABLET (FP) PO PRN (10:08)
[2018-06-01] MEDS: MELATONIN 5 MG TABLETS PO PRN (21:22)
[2018-06-01] MEDS: hydrOXYzine PAMOATE 50 MG CAPSULE (FP) PO PRN (21:22)
[2018-06-01] MEDS: THIAMINE HCL 100 MG TABLET (FP) PO SCH (21:22)
[2018-06-02 07:18] VITALS: BP 141/95; PULSE 68; TEMP 98
[2018-06-02] MEDS: ACETAMINOPHEN 325 MG TABLET (FP) PO PRN (09:56)
[2018-06-02] MEDS: NICOTINE 7 MG/24 HOURS TOPICAL PATCH TD SCH (09:57)
[2018-06-02] MEDS: PRENATAL VITAMINS W/ FOLIC ACID TABLET (FP) PO SCH (09:57)
--- NOTE | 2018-06-02 11:44 | PN ---
[facility] Progress Note Note: Patient was admitted to rehab on 05/24 with a scheduled date for discharge at the end of May. Patient is currently requesting early discharge in order to go home and pay his bills. He is adamant on leaving despite attempts to encourage completion of program. He has appointment set for 06/08 for outpatient program at [facility]. Information given to patient. He is in stable condition for discharge.
== END 2018-06-02 12:40 | disposition home or self-care (01) | DRG 772 ==
LOC: YASAS 10:44 → Y5N 15:22
PROVIDERS: ADMIT Neuromusculoskeletal Medicine & OMM; ATTEND Neuromusculoskeletal Medicine & OMM
PROC: HZ42ZZZ Group Counseling for Substance Abuse Treatment, Cognitive-Behavioral (ICD-10-PCS; principal; 2018-05-24)
DX: F10.20 Alcohol dependence, uncomplicated (principal); F12.20 Cannabis dependence, uncomplicated; F17.210 Nicotine dependence, cigarettes, uncomplicated; F19.24 Other psychoactive substance dependence with psychoactive substance-induced mood disorder; F19.282 Other psychoactive substance dependence with psychoactive substance-induced sleep disorder; I10 Essential (primary) hypertension; K21.9 Gastro-esophageal reflux disease without esophagitis; J18.9 Pneumonia, unspecified organism; Z86.2 Personal history of diseases of the blood and blood-forming organs and certain disorders involving the immune mechanism; Z59.0 Homelessness
CPT/HCPCS: 81003

== ENCOUNTER 2018-06-27 14:54 | Inpatient (IN) | payer OTHER ==
[2018-06-27 17:55] VITALS: BMI 20.2
--- NOTE | 2018-06-27 19:24 | HP ---
CIWA Score Nausea/Vomitin Muscle Tremors: 1-None Visible, but [place] Anxiety: 2 Agitation: 0-Normal Activity Paroxysmal Sweats: 2 Orientation: 0-Oriented Tacttile Disturbances: 2-Mild Itch/Numbness/Burn Auditory Disturbances: 0-None Visual Disturbances: 2-Mild Sensitivity Headache: 3-Moderate CIWA-Ar Total Score: 15 - Admission Criteria OASAS Guidelines: Admission for Medically Managed Detox: Requires at least one of the followin. CIWA greater than 12 2. Seizures within the past 24 hours 3. Delirium tremens within the past 24 hours 4. Hallucinations within the past 24 hours 5. Acute intervention needed for co occurring medical disorder 6. Acute intervention needed for co occurring psychiatric disorder 7. Severe withdrawal that cannot be handled at a lower level of care (continued vomiting, continued diarrhea, abnormal vital signs) requiring intravenous medication and/or fluids 8. Patient presents the following: CIWA greater than 12 Admission Criteria Met: Admission criteria met Admission [facility] Chief Complaint: " alcohol detox" Allergies/Adverse Reactions: Allergies Allergy/AdvReac Type Severity Reaction Status Date / Time No Known Allergies Allergy Verified 05/24/18 14:53 History of Present Illness: 47 yo male with hx of alcohol dependence is here seeking detox presents today for detox. Report was evaluated yesterday at [facility]t [facility]. Patient reports medical hx of HTN, depression and PTSD. Denies suicidal / homicidal ideation. Denies hx of seizures, reports hx of alcohol blackouts with last episode "few days ago." Last treatment [facility] 05/24/18 -06/02/18. Exam Limitations: No Limitations - Ebola screening Have you traveled outside of the country in the last 21 days: No Have you had contact with anyone from an Ebola affected area: No Have you been sick,other than usual withdrawal symptoms: No Do you have a fever: No - Review of Systems Constitutional: Chills, Loss of Appetite, Changes in sleep, Other (fatiguee) EENT: reports: No Symptoms Reported Respiratory: reports: No Symptoms reported Cardiac: reports: No Symptoms Reported GI: reports: Diarrhea, Nausea, Poor Appetite, Poor Fluid Intake, Vomiting : reports: No Symptoms Reported Musculoskeletal: reports: Other (generalize body aches) Integumentary: reports: No Symptoms Reported Neuro: reports: Headache, Numbness (both hands) Endocrine: reports: Increased Thirst Hematology: reports: No Symptoms Reported Psychiatric: reports: Orientated x3, Anxious Other Systems: Reviewed and Negative Patient History - Patient Medical History Hx Anemia: No Hx Asthma: No Hx Chronic Obstructive Pulmonary Disease (COPD): No Hx Cancer: No Hx Cardiac Disorders: No Hx Congestive Heart Failure: No Hx Hypertension: Yes Hx Hypercholesterolemia: No Hx Pacemaker: No HX Cerebrovascular Accident: No Hx Seizures: No Hx Dementia: No Hx Diabetes: No Hx Gastrointestinal Disorders: No Hx Liver Disease: No Hx Genitourinary Disorders: No Hx Sexually Transmitted Disorders: No Hx Renal Disease (ESRD): No Hx Thyroid Disease: No Hx Human Immunodeficiency Virus (HIV): No (NEGATIVE HX) Hx Hepatitis C: No Hx Depression: Yes Hx Suicide Attempt: No Hx Bipolar Disorder: Yes (i have mood swings) Hx Schizophrenia: No - Patient Surgical History Past Surgical History: Yes Hx Neurologic Surgery: No Hx Cataract Extraction: No Hx Cardiac Surgery: No Hx Lung Surgery: No Hx Breast Surgery: No Hx Breast Biopsy: No Hx Abdominal Surgery: No Hx Appendectomy: Yes Hx Cholecystectomy: No Hx Genitourinary Surgery: No Hx Section: No Hx Orthopedic Surgery: No Other Surgical History: tonsilectomy at age 7/left eye trauma in 2017, appendectomy Anesthesia Reaction: No - PPD History Previous Implant?: No Date: 10/28/17 Results: 0 mm PPD to be Administered?: Yes - Reproductive History Patient : No - Smoking Cessation Smoking history: Current some day smoker Have you smoked in the past 12 months: Yes Aproximately how many cigarettes per day: 3 Hx Chewing Tobacco Use: No Initiated information on smoking cessation: Yes 'Breaking Loose' booklet given: 06/27/18 - Substance & Tx. History Hx Alcohol Use: Yes Hx Substance Use: Yes Substance Use Type: Alcohol Hx Substance Use Treatment: Yes ( Last treatment [facility] 05/24/18 -06/02/18.) - Substances Abused etoh Route: Oral Frequency: Daily Amount used: 1 x 6 pack Age of first use: 18 Date of Last Use: 06/26/18 Family Disease History - Family Disease History Family Disease History: Diabetes: Father (HTN/ALCOHOLISM-), Mother (HTN/ ALCOHOLISM-), Other: Grandparent (-ALZHEIMERSDECEASED), Father, Mother Admission Physical Exam BHS - Vital Signs Vital Signs: Vital Signs - 24 hr 06/27/18 17:53 Temperature 97.8 F Pulse Rate 110 H Respiratory 18 Rate Blood Pressure 160/100 - Physical General Appearance: Yes: Disheveled, Thin, Anxious HEENTM: Yes: EOMI, Hearing grossly Normal, Normal ENT Inspection, Normocephalic , Normal Voice, ISIDRA, Pharynx Normal, Tm's normal, Rhinorrhea Respiratory: Yes: Chest Non-Tender, Lungs Clear, Normal Breath Sounds, No Respiratory Distress, No Accessory Muscle Use Neck: Yes: Within Normal Limits Breast: Yes: Breast Exam Deferred Cardiology: Yes: Regular Rhythm, Tachycardia Abdominal: Yes: Normal Bowel Sounds, Non Tender, Flat, Soft Genitourinary: Yes: Within Normal Limits Back: Yes: Normal Inspection Musculoskeletal: Yes: Within Normal Limits Extremities: Yes: Normal Capillary Refill, Normal Inspection, Normal Range of Motion Neurological: Yes: ios architect II-XII NML intact, Fully Oriented, Alert, Motor Strength 5/5, Normal Mood/Affect (anxious) Integumentary: Yes: Normal Color, Warm, Diaphoresis Lymphatic: Yes: Within Normal Limits - Diagnostic (1) Alcohol dependence with uncomplicated withdrawal Current Visit: Yes Status: Chronic (2) HTN (hypertension) Current Visit: Yes Status: Chronic Qualifiers: Hypertension type: essential hypertension Qualified Code(s): I10 - Essential (primary) hypertension (3) Nicotine dependence Current Visit: Yes Status: Chronic Qualifiers: Nicotine product type: cigarettes Substance use status: uncomplicated Qualified Code(s): F17.210 - Nicotine dependence, cigarettes, uncomplicated Cleared for Admission [facility] - Detox or Rehab [facility] Level of Care: Medically Managed Detox Regimen/Protocol: Librium [facility] Breath Alcohol Content Breath Alcohol Content: 0.395 Urine Drug Screen - Results Drug Screen Negative: No Urine Drug Screen Results: THC-Marijuana, BZO-Benzodiazepines Inpatient Rehab Admission - Rehab Decision to Admit Inpatient rehab admission?: No
[2018-06-27] MEDS ORDERED: hydrOXYzine PAMOATE 25 MG CAPSULE (FP) PO PRN (19:32)
[2018-06-27] MEDS ORDERED: MAGNESIUM CITRATE 300 ML BOTTLE PO PRN (19:32)
[2018-06-27] MEDS ORDERED: chlordiazePOXIDE HCL 25 MG CAPSULE PO PRN (19:32)
[2018-06-27] MEDS ORDERED: NICOTINE POLACRILEX 2 MG GUM BUC PRN (19:32)
[2018-06-27] MEDS ORDERED: MAG HYDROX/AL HYDROX/SIMETH 30 ML UNIT-DOSE CUP PO PRN (19:32)
[2018-06-27] MEDS ORDERED: MAGNESIUM HYDROX 2400MG/30ML ORAL SUSPENSION 30 ML CUP PO PRN (19:32)
[2018-06-27] MEDS ORDERED: BISMUTH SUBSALICYLATE 524 MG/30 ML UD PO PRN (19:32)
[2018-06-27] MEDS ORDERED: ACETAMINOPHEN 325 MG TABLET (FP) PO PRN (19:32)
[2018-06-27] MEDS ORDERED: MENTHOL/PHENOL 1 EACH UD MM PRN (19:32)
[2018-06-27] MEDS: chlordiazePOXIDE HCL 25 MG CAPSULE PO SCH (22:29)
[2018-06-27] MEDS: THIAMINE HCL 100 MG TABLET (FP) PO SCH (22:29)
[2018-06-27] MEDS: MELATONIN 5 MG TABLETS PO PRN (22:31)
[2018-06-27] MEDS: IBUPROFEN 400 MG TABLET (FP) PO PRN (22:32)
[2018-06-28 01:16] LABS: EPI CELLS 0 /HPF (FEW); HYALINE CASTS 0 /hpf (NEGATIVE); URINE APPEARANCE CLEAR; URINE BACTERIA 0 /hpf (NEGATIVE); URINE BILIRUBIN NEGATIVE (<2.0 mg/dL); URINE COLOR YELLOW; URINE GLUCOSE (UA) NEGATIVE (NEGATIVE); URINE KETONE NEGATIVE (NEGATIVE); URINE LEUK ESTERASE NEGATIVE (NEGATIVE); URINE NITRITE NEGATIVE (NEGATIVE); URINE PROTEIN NEGATIVE (NEGATIVE); URINE RBC 0 /hpf (0-3); URINE UROBILINOGEN 0.2 mg/dL (0.2-1.0); URINE WBC 0 /hpf (3-5)
[2018-06-28] MEDS: chlordiazePOXIDE HCL 25 MG CAPSULE PO SCH ×4 (06:09→22:50)
[2018-06-28] MEDS: PRENATAL VITAMINS W/ FOLIC ACID TABLET (FP) PO SCH (10:51)
[2018-06-28] MEDS: NICOTINE 14 MG/24 HOURS TOPICAL PATCH TD SCH (10:51)
--- NOTE | 2018-06-28 15:02 | PN ---
S CIWA - CIWA Score Nausea/Vomitin-No Nausea/No Vomiting Muscle Tremors: 2 Anxiety: 3 Agitation: 2 Paroxysmal Sweats: 1-Minimal Palms Moist Orientation: 1-Uncertain about Date Tacttile Disturbances: 0-None Auditory Disturbances: 0-None Visual Disturbances: 0-None Headache: 1-Very Mild CIWA-Ar Total Score: 10 S Progress Note (SOAP) Subjective: patient was admitted a few weeks ago repeat lab is not necessary at this time patient is irritable but social with peers in day room Objective: 06/28/18 15:04 Vital Signs Temperature 97.4 F L 06/28/18 13:41 Pulse Rate 96 H 06/28/18 14:30 Respiratory Rate 18 06/28/18 14:30 Blood Pressure 151/94 06/28/18 13:41 O2 Sat by Pulse Oximetry (%) Laboratory Last Values Urine Color Yellow 06/28/18 00:01 Urine Appearance Clear 06/28/18 00:01 Urine pH 5.0 (5.0-8.0) D 06/28/18 00:01 Ur Specific [place] 1.004 (1.010-1.035) L 06/28/18 00:01 Urine Protein Negative (NEGATIVE) 06/28/18 00:01 Urine Glucose (UA) Negative (NEGATIVE) 06/28/18 00:01 Urine Ketones Negative (NEGATIVE) 06/28/18 00:01 Urine Blood Negative (NEGATIVE) 06/28/18 00:01 Urine Nitrite Negative (NEGATIVE) 06/28/18 00:01 Urine Bilirubin Negative (<2.0 mg/dL) 06/28/18 00:01 Urine Urobilinogen 0.2 mg/dL (0.2-1.0) 06/28/18 00:01 Ur Leukocyte Esterase Negative (NEGATIVE) 06/28/18 00:01 Urine WBC (Auto) 0 /hpf (3-5) 06/28/18 00:01 Urine RBC (Auto) 0 /hpf (0-3) 06/28/18 00:01 Urine Casts (Auto) 0 /hpf (NEGATIVE) 06/28/18 00:01 U Epithel Cells (Auto) 0 /HPF (FEW) 06/28/18 00:01 Urine Bacteria (Auto) 0 /hpf (NEGATIVE) 06/28/18 00:01 leb noted see lab 05/2018 Assessment: 06/28/18 15:04 withdrawal sx Plan: continue detox
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
[2018-06-28] MEDS: THIAMINE HCL 100 MG TABLET (FP) PO SCH (22:49)
[2018-06-28] MEDS: QUEtiapine FUMARATE 50 MG TABLET PO SCH (22:49)
[2018-06-28] MEDS: MELATONIN 5 MG TABLETS PO PRN (22:50)
[2018-06-29] MEDS: chlordiazePOXIDE HCL 25 MG CAPSULE PO SCH ×3 (05:43→17:25)
[2018-06-29] MEDS: PRENATAL VITAMINS W/ FOLIC ACID TABLET (FP) PO SCH (10:16)
[2018-06-29] MEDS: NICOTINE 14 MG/24 HOURS TOPICAL PATCH TD SCH (10:16)
[2018-06-29] MEDS: ACETAMINOPHEN 325 MG TABLET (FP) PO PRN (10:17)
[2018-06-29] MEDS: METHOCARBAMOL 500 MG TABLET PO PRN (10:17)
--- NOTE | 2018-06-29 17:17 | PN ---
S CIWA - CIWA Score Nausea/Vomitin Muscle Tremors: 2 Anxiety: 5 Agitation: 0-Normal Activity Paroxysmal Sweats: No Perspiration Orientation: 0-Oriented Tacttile Disturbances: 2-Mild Itch/Numbness/Burn Auditory Disturbances: 0-None Visual Disturbances: 2-Mild Sensitivity Headache: 0-None Present CIWA-Ar Total Score: 14 BHS Progress Note (SOAP) Subjective: Anxious, Nausea, Tremors, Poor Appetite. Objective: PATIENT A & O X 3, OBSERVED AMBULATING ON UNIT. IN NO ACUTE DISTRESS. 06/29/18 17:15 Vital Signs Temperature 99.8 F H 06/29/18 13:56 Pulse Rate 118 H 06/29/18 13:56 Respiratory Rate 18 06/29/18 13:56 Blood Pressure 120/84 06/29/18 13:56 O2 Sat by Pulse Oximetry (%) Laboratory Tests 06/28/18 00:01 Urine Color Yellow Urine Appearance Clear Urine pH 5.0 D Ur Specific [place] 1.004 L Urine Protein Negative Urine Glucose (UA) Negative Urine Ketones Negative Urine Blood Negative Urine Nitrite Negative Urine Bilirubin Negative Urine Urobilinogen 0.2 Ur Leukocyte Esterase Negative Urine WBC (Auto) 0 Urine RBC (Auto) 0 Urine Casts (Auto) 0 U Epithel Cells (Auto) 0 Urine Bacteria (Auto) 0 ADMISSION UA RESULTS NOTED. PATIENT REFUSED TO HAVE OTHER ADMISSION LABS DRAWN. 06/29/18 17:15 Assessment: 06/29/18 17:16 WITHDRAWAL SYMPTOMS. Plan: CONTINUE DETOX. ENSURE TID WITH MEALS.
[2018-06-29] MEDS: IBUPROFEN 400 MG TABLET (FP) PO PRN (17:27)
[2018-06-29] MEDS: THIAMINE HCL 100 MG TABLET (FP) PO SCH (22:04)
[2018-06-29] MEDS: MELATONIN 5 MG TABLETS PO PRN (22:04)
[2018-06-29] MEDS: QUEtiapine FUMARATE 50 MG TABLET PO SCH (22:04)
[2018-06-29] MEDS: chlordiazePOXIDE HCL 10 MG CAPSULE PO SCH (22:04)
[2018-06-29] MEDS ORDERED: chlordiazePOXIDE HCL 10 MG CAPSULE PO PRN (23:00)
[2018-06-30] MEDS: chlordiazePOXIDE HCL 10 MG CAPSULE PO SCH ×3 (06:00→17:55)
[2018-06-30] MEDS: IBUPROFEN 400 MG TABLET (FP) PO PRN (06:02)
[2018-06-30] MEDS: ACETAMINOPHEN 325 MG TABLET (FP) PO PRN ×2 (09:21→17:56)
[2018-06-30] MEDS: PRENATAL VITAMINS W/ FOLIC ACID TABLET (FP) PO SCH (10:24)
[2018-06-30] MEDS: NICOTINE 14 MG/24 HOURS TOPICAL PATCH TD SCH (10:24)
[2018-06-30] MEDS: METHOCARBAMOL 500 MG TABLET PO PRN (10:25)
--- NOTE | 2018-06-30 14:58 | PN ---
BHS Progress Note (SOAP) Subjective: Anxious, H/A. Objective: PATIENT A & O X 3, OBSERVED AMBULATING ON UNIT. IN NO ACUTE DISTRESS. 06/30/18 14:57 Vital Signs Temperature 96.8 F L 06/30/18 13:38 Pulse Rate 96 H 06/30/18 13:38 Respiratory Rate 20 06/30/18 13:38 Blood Pressure 131/84 06/30/18 13:38 O2 Sat by Pulse Oximetry (%) Laboratory Tests 06/28/18 00:01 Urine Color Yellow Urine Appearance Clear Urine pH 5.0 D Ur Specific [place] 1.004 L Urine Protein Negative Urine Glucose (UA) Negative Urine Ketones Negative Urine Blood Negative Urine Nitrite Negative Urine Bilirubin Negative Urine Urobilinogen 0.2 Ur Leukocyte Esterase Negative Urine WBC (Auto) 0 Urine RBC (Auto) 0 Urine Casts (Auto) 0 U Epithel Cells (Auto) 0 Urine Bacteria (Auto) 0 UA RESULTS NOTED. PATIENT REFUSED TO OTHER ADMISSION LABS DRAWN. Assessment: 06/30/18 14:57 WITHDRAWAL SYMPTOMS. Plan: CONTINUE DETOX.
[2018-06-30] MEDS: THIAMINE HCL 100 MG TABLET (FP) PO SCH (22:16)
[2018-06-30] MEDS: QUEtiapine FUMARATE 50 MG TABLET PO SCH (22:16)
[2018-06-30] MEDS: MELATONIN 5 MG TABLETS PO PRN (22:16)
[2018-06-30] MEDS ORDERED: chlordiazePOXIDE HCL 10 MG CAPSULE PO SCH (23:00)
[2018-07-01 06:31] VITALS: BP 116/78; PULSE 72; TEMP 96.4
--- NOTE | 2018-07-01 08:34 | DS ---
[facility] Detox Discharge Summary Admission Date: 06/27/18 Discharge Date: 07/01/18 - History Present History: Alcohol Dependence Additional Comments: 47 years old male admitted on 06/27/18 for alcohol withdrawal stabilization completed detox regimen aftercare [facility] [place] [facility] - Physical Exam Results Vital Signs: Vital Signs Temperature 96.4 F L 07/01/18 06:31 Pulse Rate 72 07/01/18 06:31 Respiratory Rate 18 07/01/18 06:31 Blood Pressure 116/78 07/01/18 06:31 O2 Sat by Pulse Oximetry (%) Pertinent Admission Physical Exam Findings: alcohol withdrawal sx Laboratory Last Values Urine Color Yellow 06/28/18 00:01 Urine Appearance Clear 06/28/18 00:01 Urine pH 5.0 (5.0-8.0) D 06/28/18 00:01 Ur Specific [place] 1.004 (1.010-1.035) L 06/28/18 00:01 Urine Protein Negative (NEGATIVE) 06/28/18 00:01 Urine Glucose (UA) Negative (NEGATIVE) 06/28/18 00:01 Urine Ketones Negative (NEGATIVE) 06/28/18 00:01 Urine Blood Negative (NEGATIVE) 06/28/18 00:01 Urine Nitrite Negative (NEGATIVE) 06/28/18 00:01 Urine Bilirubin Negative (<2.0 mg/dL) 06/28/18 00:01 Urine Urobilinogen 0.2 mg/dL (0.2-1.0) 06/28/18 00:01 Ur Leukocyte Esterase Negative (NEGATIVE) 06/28/18 00:01 Urine WBC (Auto) 0 /hpf (3-5) 06/28/18 00:01 Urine RBC (Auto) 0 /hpf (0-3) 06/28/18 00:01 Urine Casts (Auto) 0 /hpf (NEGATIVE) 06/28/18 00:01 U Epithel Cells (Auto) 0 /HPF (FEW) 06/28/18 00:01 Urine Bacteria (Auto) 0 /hpf (NEGATIVE) 06/28/18 00:01 lab oted - Treatment Hospital Course: Detox Protocol Followed, Detoxed Safely, Responded well, Discharged Condition Good, Rehab Referral Accepted Patient has Accepted a Rehab Referral to: community self help support network - Medication Discharge Medications: Ambulatory Orders NK [No Known Home Medication] 06/27/18 - Diagnosis (1) Alcohol dependence with uncomplicated withdrawal Status: Acute (2) Substance induced mood disorder Status: Suspected (3) GERD (gastroesophageal reflux disease) Status: Chronic Qualifiers: Esophagitis presence: without esophagitis Qualified Code(s): K21.9 - Gastro -esophageal reflux disease without esophagitis (4) HTN (hypertension) Status: Chronic Qualifiers: Hypertension type: essential hypertension Qualified Code(s): I10 - Essential (primary) hypertension (5) Nicotine dependence Status: Acute Qualifiers: Nicotine product type: cigarettes Substance use status: in withdrawal Qualified Code(s): F17.213 - Nicotine dependence, cigarettes, with withdrawal - AMA Did Patient Leave Against Medical Advice: No
== END 2018-07-01 09:17 | disposition home or self-care (01) | DRG 775 ==
LOC: YASAS 14:54 → Y3N 21:15
PROVIDERS: ADMIT Surgery; ATTEND Surgery
PROC: HZ2ZZZZ Detoxification Services for Substance Abuse Treatment (ICD-10-PCS; principal; 2018-06-27)
DX: F10.230 Alcohol dependence with withdrawal, uncomplicated (principal); F12.20 Cannabis dependence, uncomplicated; F17.213 Nicotine dependence, cigarettes, with withdrawal; F19.282 Other psychoactive substance dependence with psychoactive substance-induced sleep disorder; F19.24 Other psychoactive substance dependence with psychoactive substance-induced mood disorder; F31.9 Bipolar disorder, unspecified; I10 Essential (primary) hypertension; K21.9 Gastro-esophageal reflux disease without esophagitis; D64.9 Anemia, unspecified; Z87.01 Personal history of pneumonia (recurrent)
CPT/HCPCS: 81003

== ENCOUNTER 2018-08-07 20:52 | Inpatient (IN) | payer OTHER ==
[2018-08-07 21:06] VITALS: BMI 20.9
--- NOTE | 2018-08-07 21:30 | HP ---
CIWA Score Nausea/Vomitin Muscle Tremors: 1-None Visible, but [place] Anxiety: 2 Agitation: 3 Paroxysmal Sweats: 2 Orientation: 0-Oriented Tacttile Disturbances: 2-Mild Itch/Numbness/Burn Auditory Disturbances: 0-None Visual Disturbances: 0-None Headache: 2-Mild CIWA-Ar Total Score: 15 - Admission Criteria [facility]ASAS Guidelines: Admission for Medically Managed Detox: Requires at least one of the followin. CIWA greater than 12 2. Seizures within the past 24 hours 3. Delirium tremens within the past 24 hours 4. Hallucinations within the past 24 hours 5. Acute intervention needed for co occurring medical disorder 6. Acute intervention needed for co occurring psychiatric disorder 7. Severe withdrawal that cannot be handled at a lower level of care (continued vomiting, continued diarrhea, abnormal vital signs) requiring intravenous medication and/or fluids 8. Patient presents the following: CIWA greater than 12 Admission Criteria Met: Admission criteria met Admission ROS S - [facility] Chief Complaint: alcohol withdrawal Allergies/Adverse Reactions: Allergies Allergy/AdvReac Type Severity Reaction Status Date / Time No Known Allergies Allergy Verified 08/07/18 20:56 History of Present Illness: 47 yo male, homeless, with hx of alcohol dependence is here for detox. Report was evaluated yesterday at [facility] emergency department in [place] two days for alcohol symptoms. Patient reports medical hx of Anemia, HTN, depression, bipolar and PTSD. Denies suicidal / homicidal ideation. Denies hx of seizures, reports hx of alcohol blackouts with last episode "few days ago." Last treatment [facility] 06/27/18 -07/01/18. Exam Limitations: No Limitations - Ebola screening Have you traveled outside of the country in the last 21 days: No (N) Have you had contact with anyone from an Ebola affected area: No Do you have a fever: No - Review of Systems Constitutional: Chills, Loss of Appetite, Changes in sleep, Unexplained wgt Loss EENT: reports: No Symptoms Reported Respiratory: reports: No Symptoms reported Cardiac: reports: Palpitations GI: reports: Diarrhea, Nausea, Poor Appetite, Vomiting : reports: No Symptoms Reported Musculoskeletal: reports: No Symptoms Reported Integumentary: reports: Dryness, Sweating Neuro: reports: Headache Endocrine: reports: Increased Thirst Hematology: reports: No Symptoms Reported Psychiatric: reports: Orientated x3, Anxious Other Systems: Reviewed and Negative Patient History - Patient Medical History Hx Anemia: No Hx Asthma: No Hx Chronic Obstructive Pulmonary Disease (COPD): No Hx Cancer: No Hx Cardiac Disorders: No Hx Congestive Heart Failure: No Hx Hypertension: Yes Hx Hypercholesterolemia: No Hx Pacemaker: No HX Cerebrovascular Accident: No Hx Seizures: No Hx Dementia: No Hx Diabetes: No Hx Gastrointestinal Disorders: No Hx Liver Disease: No Hx Genitourinary Disorders: No Hx Sexually Transmitted Disorders: No Hx Renal Disease (ESRD): No Hx Thyroid Disease: No Hx Human Immunodeficiency Virus (HIV): No (NEGATIVE HX) Hx Hepatitis C: No Hx Depression: Yes Hx Suicide Attempt: No Hx Bipolar Disorder: Yes (i have mood swings) Hx Schizophrenia: No - Patient Surgical History Past Surgical History: Yes Hx Neurologic Surgery: No Hx Cataract Extraction: No Hx Cardiac Surgery: No Hx Lung Surgery: No Hx Breast Surgery: No Hx Breast Biopsy: No Hx Abdominal Surgery: No Hx Appendectomy: Yes Hx Cholecystectomy: No Hx Genitourinary Surgery: No Hx Section: No Hx Orthopedic Surgery: No Other Surgical History: tonsilectomy at age 7/left eye trauma in 2017, appendectomy Anesthesia Reaction: No - PPD History Previous Implant?: No Documented Results: Negative w/proof Date: 10/28/17 Results: 0 mm PPD to be Administered?: No - Smoking Cessation Smoking history: Current some day smoker Have you smoked in the past 12 months: Yes Aproximately how many cigarettes per day: 3 Hx Chewing Tobacco Use: No Initiated information on smoking cessation: Yes 'Breaking Loose' booklet given: 08/07/18 - Substance & Tx. History Hx Alcohol Use: Yes Hx Substance Use: Yes Substance Use Type: Alcohol Hx Substance Use Treatment: Yes (Last treatment [facility] 06/27/18 -07/01/18. ) - Substances abused Alcohol Substance route: Oral Frequency: Daily Amount used: 6 beers x ( 24 oz cans ) 1 bottle wine Age of first use: 20 Date of last use: 08/07/18 Marijuana/Hashish Substance route: Smoking Frequency: Daily Amount used: 2 joints Age of first use: 7 Date of last use: 08/05/18 Family Disease History - Family Disease History Family Disease History: Diabetes: Father (HTN/ALCOHOLISM-), Mother (HTN/ ALCOHOLISM-), Other: Grandparent (-ALZHEIMERSDECEASED), Father, Mother Admission Physical Exam [facility] - Vital Signs Vital Signs: Vital Signs - 24 hr 08/07/18 20:59 Temperature 98 F Pulse Rate 86 Respiratory 18 Rate Blood Pressure 122/82 - Physical General Appearance: Yes: Disheveled, Mild Distress, Alcohol on Breath, Thin, Irritable, Anxious HEENTM: Yes: EOMI, Hearing grossly Normal, Normal ENT Inspection, Normocephalic , Normal Voice, ISIDRA, Pharynx Normal, Tm's normal, Other (cheilits) Respiratory: Yes: Chest Non-Tender, Lungs Clear, Normal Breath Sounds, No Respiratory Distress, No Accessory Muscle Use Neck: Yes: Within Normal Limits Breast: Yes: Breast Exam Deferred Cardiology: Yes: Regular Rhythm, Regular Rate Abdominal: Yes: Normal Bowel Sounds, Non Tender, Flat, Soft Back: Yes: Normal Inspection Musculoskeletal: Yes: full range of Motion, Gait Steady, Pelvis Stable Extremities: Yes: Normal Capillary Refill, Normal Inspection, Normal Range of Motion, Non-Tender Neurological: Yes: label fuser tender II-XII NML intact, Motor Strength 5/5, Depressed Affect Integumentary: Yes: Normal Color, Warm, Diaphoresis Lymphatic: Yes: Within Normal Limits - Diagnostic (1) Alcohol dependence with uncomplicated withdrawal Current Visit: Yes Status: Acute (2) Nicotine dependence Current Visit: Yes Status: Acute Qualifiers: Nicotine product type: cigarettes Substance use status: in withdrawal Qualified Code(s): F17.213 - Nicotine dependence, cigarettes, with withdrawal (3) Cannabis dependence Current Visit: Yes Status: Chronic (4) HTN (hypertension) Current Visit: Yes Status: Chronic Qualifiers: Hypertension type: essential hypertension Qualified Code(s): I10 - Essential (primary) hypertension Cleared for Admission [facility] - Detox or Rehab [facility] Level of Care: Medically Managed Detox Regimen/Protocol: Librium Inpatient Rehab Admission - Rehab Decision to Admit Inpatient rehab admission?: No
[2018-08-07] MEDS ORDERED: MAGNESIUM HYDROX 2400MG/30ML ORAL SUSPENSION 30 ML CUP PO PRN (21:35)
[2018-08-07] MEDS ORDERED: ACETAMINOPHEN 325 MG TABLET (FP) PO PRN ×2 (21:35)
[2018-08-07] MEDS ORDERED: BISMUTH SUBSALICYLATE 524 MG/30 ML UD PO PRN (21:35)
[2018-08-07] MEDS ORDERED: MAG HYDROX/AL HYDROX/SIMETH 30 ML UNIT-DOSE CUP PO PRN (21:35)
[2018-08-07] MEDS ORDERED: MENTHOL/PHENOL 1 EACH UD MM PRN (21:35)
[2018-08-07] MEDS ORDERED: chlordiazePOXIDE HCL 25 MG CAPSULE PO PRN (21:35)
[2018-08-07] MEDS ORDERED: MAGNESIUM CITRATE 300 ML BOTTLE PO PRN (21:35)
[2018-08-07] MEDS ORDERED: NICOTINE POLACRILEX 2 MG GUM BUC PRN (21:35)
[2018-08-07] MEDS: THIAMINE HCL 100 MG TABLET (FP) PO SCH (22:56)
[2018-08-07] MEDS: chlordiazePOXIDE HCL 25 MG CAPSULE PO SCH (22:56)
[2018-08-07] MEDS: MELATONIN 5 MG TABLETS PO PRN (22:57)
[2018-08-07] MEDS: METHOCARBAMOL 500 MG TABLET PO PRN (22:57)
[2018-08-08 00:30] LABS: PH,URINE 5.5 (5.0-8.0); URINE APPEARANCE CLEAR; URINE BILIRUBIN NEGATIVE (NEGATIVE); URINE COLOR YELLOW; URINE GLUCOSE (UA) NEGATIVE (NEGATIVE); URINE KETONE NEGATIVE (NEGATIVE); URINE LEUK ESTERASE NEGATIVE (NEGATIVE); URINE NITRITE NEGATIVE (NEGATIVE); URINE PROTEIN NEGATIVE (NEGATIVE); URINE UROBILINOGEN 0.2 mg/dL (0.2-1.0)
[2018-08-08] MEDS: chlordiazePOXIDE HCL 25 MG CAPSULE PO SCH ×3 (05:47→16:59)
--- NOTE | 2018-08-08 09:22 | PN ---
S CIWA - CIWA Score Nausea/Vomitin-Mild Nausea/No Vomiting Muscle Tremors: 2 Anxiety: 2 Agitation: 3 Paroxysmal Sweats: 1-Minimal Palms Moist Orientation: 2-Disoriented Date<2 days Tacttile Disturbances: 0-None Auditory Disturbances: 0-None Visual Disturbances: 1-Very Mild Sensitivity Headache: 2-Mild CIWA-Ar Total Score: 14 BHS Progress Note (SOAP) Subjective: irritable restlessness sensitive to light Objective: 08/08/18 09:24 Vital Signs Temperature 96.3 F L 08/08/18 09:19 Pulse Rate 102 H 08/08/18 09:19 Respiratory Rate 20 08/08/18 09:19 Blood Pressure 120/87 08/08/18 09:19 O2 Sat by Pulse Oximetry (%) Laboratory Last Values Urine Color Yellow 08/07/18 23:10 Urine Appearance Clear 08/07/18 23:10 Urine pH 5.5 (5.0-8.0) 08/07/18 23:10 Ur Specific [place] 1.003 (1.010-1.035) L 08/07/18 23:10 Urine Protein Negative (NEGATIVE) 08/07/18 23:10 Urine Glucose (UA) Negative (NEGATIVE) 08/07/18 23:10 Urine Ketones Negative (NEGATIVE) 08/07/18 23:10 Urine Blood Negative (NEGATIVE) 08/07/18 23:10 Urine Nitrite Negative (NEGATIVE) 08/07/18 23:10 Urine Bilirubin Negative (NEGATIVE) 08/07/18 23:10 Urine Urobilinogen 0.2 mg/dL (0.2-1.0) 08/07/18 23:10 Ur Leukocyte Esterase Negative (NEGATIVE) 08/07/18 23:10 lab noted Assessment: 08/08/18 09:24 withdrawal sx Plan: continue detox
[2018-08-08] MEDS: PRENATAL VITAMINS W/ FOLIC ACID TABLET (FP) PO SCH (10:20)
[2018-08-08] MEDS: NICOTINE 14 MG/24 HOURS TOPICAL PATCH TD SCH (10:20)
[2018-08-08 10:22] LABS: HEMATOCRIT 33.5 % (35.4-49); HEMOGLOBIN 11.2 GM/dL (11.7-16.9); MCH 31.8 pg (25.7-33.7); MCHC 33.4 g/dl (32.0-35.9); MEAN CELL VOLUME 95.2 fl (80-96); MEAN PLT VOLUME 9.3 fl (7.5-11.1); PLATELET COUNT 76 K/MM3 (134-434); RBC 3.52 M/mm3 (4.00-5.60); WHITE BLOOD COUNT 2.9 K/mm3 (4.0-10.0)
[2018-08-08 10:23] LABS: ALBUMIN 3.4 g/dl (3.4-5.0); ALK PHOS 119 U/L (45-117); ANION GAP 8 MMOL/L (8-16); BILIRUBIN,TOTAL 0.7 mg/dL (0.2-1); BLOOD UREA NITROGEN 11 mg/dL (7-18); CHLORIDE 106 mmol/L (98-107); CO2 26 mmol/L (21-32); CREATININE 0.9 mg/dL (0.55-1.3); GLUCOSE,RANDOM 78 mg/dL (74-106); POTASSIUM 3.7 mmol/L (3.5-5.1); SGOT/AST 214 U/L (15-37); SGPT/ALT 73 U/L (13-61); SODIUM 140 mmol/L (136-145); TOT PROT 7.1 g/dl (6.4-8.2)
--- NOTE | 2018-08-08 12:36 | CONSULT ---
[facility] Psychiatric Consult - Data Date of interview: 08/08/18 Admission source: [facility] Identifying data: Readmission to [facility] for this 48 y/o AA male, currently treated on [facility] for detoxification (alcohol, cannabis). Patient is single without dependents, homeless, unemployed and supported on Public Assistance. Substance Abuse History: Confirmed by the patient in this interview. Details in current [facility] report : Smoking history: Current some day smoker. Have you smoked in the past 12 months: Yes. Aproximately how many cigarettes per day: 3. Hx Chewing Tobacco Use: No. Initiated information on smoking cessation: Yes. ' Breaking Loose' booklet given: 08/07/18. - Substance & Tx. History. Hx Alcohol Use: Yes. Hx Substance Use: Yes. Substance Use Type: Alcohol. Hx Substance Use Treatment: Yes (Last treatment [facility] 06/27/18 -07/01/18. ). - Substances abused. Alcohol. Substance route: Oral. Frequency: Daily. Amount used: 6 beers x ( 24 oz cans ) 1 bottle wine. Age of first use: 20. Date of last use: 08/07/18. Marijuana/Hashish. Substance route: Smoking. Frequency: Daily. Amount used: 2 joints. Age of first use: 7. Date of last use: 08/05/18 Medical History: Remarkable for anemia, GERD, antecedent of trauma to left eye ( underwent eye surgery), hypertension and history of appendectomy + tonsillectomy (childhood). Psychiatric History: No reported history of psychiatric hospitalizations.Patient remains vague about the issue of past treatment for depression. No recall of names of medications. Mr Pastrana denies having contact with psychiatrist/therapists. Off psychotropic medications for several months. Patient denies history of suicide attempts. Physical/Sexual Abuse/Trauma History: Patient denies. Additional Comment: Toxicology is not available. Mental Status Exam - Mental Status Exam Alert and Oriented to: Time, Place, Person Cognitive Function: Grossly Intact Patient Appearance: Disheveled Mood: Hostile, Nervous, Withdrawn, Irritable Affect: Mood Congruent, Constricted Patient Behavior: Fatigued, Uncooperative Speech Pattern: Clear Voice Loudness: Normal Thought Process: Goal Oriented Thought Disorder: Not Present Hallucinations: Denies Suicidal Ideation: Denies Homicidal Ideation: Denies Insight/Judgement: Poor Sleep: Poorly, Difficulty falling asleep Appetite: Good Muscle strength/Tone: Normal Gait/Station: Other (not observed; not out of bed) Psychiatric Findings - Problem List ([place] 1, 2,3) (1) Alcohol dependence with uncomplicated withdrawal Current Visit: Yes Status: Acute (2) Nicotine dependence Current Visit: Yes Status: Chronic Qualifiers: Nicotine product type: cigarettes Substance use status: in withdrawal Qualified Code(s): F17.213 - Nicotine dependence, cigarettes, with withdrawal (3) Cannabis dependence Current Visit: Yes Status: Chronic (4) Substance induced mood disorder Current Visit: Yes Status: Chronic (5) Insomnia Current Visit: Yes Status: Chronic - Initial Treatment Plan Initial Treatment Plan: Records ([facility]) reviewed. Psychoeducation. Sleep hygiene. Detoxification. Insomnia is addressed with melatonin prn at bedtime. Patient agrees to this careplan. Observation.
[2018-08-08] MEDS: METHOCARBAMOL 500 MG TABLET PO PRN (17:01)
--- NOTE | 2018-08-08 18:10 | PN ---
S Progress Note Note: Abd: S/NT/BS+ Elevated AST and ALT. CMP Sodium 140 mmol/L (136-145) 08/08/18 07:00 Potassium 3.7 mmol/L (3.5-5.1) 08/08/18 07:00 Chloride 106 mmol/L (98-107) 08/08/18 07:00 Carbon Dioxide 26 mmol/L (21-32) 08/08/18 07:00 Anion Gap 8 MMOL/L (8-16) 08/08/18 07:00 BUN 11 mg/dL (7-18) 08/08/18 07:00 Creatinine 0.9 mg/dL (0.55-1.3) 08/08/18 07:00 Creat Clearance w eGFR 89.32 (>60) 08/08/18 07:00 Random Glucose 78 mg/dL (74-106) 08/08/18 07:00 Calcium 8.0 mg/dL (8.5-10.1) L 08/08/18 07:00 Total Bilirubin 0.7 mg/dL (0.2-1) 08/08/18 07:00 AST 214 U/L (15-37) H 08/08/18 07:00 ALT 73 U/L (13-61) H 08/08/18 07:00 Alkaline Phosphatase 119 U/L (45-117) H 08/08/18 07:00 Total Protein 7.1 g/dl (6.4-8.2) 08/08/18 07:00 Albumin 3.4 g/dl (3.4-5.0) 08/08/18 07:00 Significant increase in AST since May admission. 05/12/18 08/08/18 AST: 57 214 ALT: 32 73 Plan: Change Librium protocol to Ativan D/C tylenol. Reviewed with patient lab results and significance
[2018-08-08] MEDS ORDERED: LORazepam 0.5 MG TABLET PO SCH (19:45)
[2018-08-08] MEDS ORDERED: LORazepam 0.5 MG TABLET PO PRN (20:07)
[2018-08-08] MEDS: THIAMINE HCL 100 MG TABLET (FP) PO SCH (22:08)
[2018-08-08] MEDS: MELATONIN 5 MG TABLETS PO PRN (22:08)
[2018-08-08] MEDS ORDERED: LORazepam 2 MG TABLET PO SCH (23:00)
[2018-08-08] MEDS ORDERED: chlordiazePOXIDE HCL 25 MG CAPSULE PO SCH (23:00)
[2018-08-09] MEDS: LORazepam 1 MG TABLET PO SCH ×4 (05:23→22:26)
[2018-08-09] MEDS: IBUPROFEN 400 MG TABLET (FP) PO PRN ×2 (05:25→19:24)
[2018-08-09] MEDS: NICOTINE 14 MG/24 HOURS TOPICAL PATCH TD SCH (10:12)
[2018-08-09] MEDS: PRENATAL VITAMINS W/ FOLIC ACID TABLET (FP) PO SCH (10:12)
--- NOTE | 2018-08-09 11:29 | PN ---
S CIWA - CIWA Score Nausea/Vomitin-Mild Nausea/No Vomiting Muscle Tremors: 3 Anxiety: 2 Agitation: 2 Paroxysmal Sweats: 1-Minimal Palms Moist Orientation: 0-Oriented Tacttile Disturbances: 0-None Auditory Disturbances: 0-None Visual Disturbances: 0-None Headache: 1-Very Mild CIWA-Ar Total Score: 10 BHS Progress Note (SOAP) Subjective: patient preferring to rest on bed hesitate to talk about alcohol withdrawal sx feeling anxious encourage vistaril Objective: 08/09/18 11:31 Vital Signs Temperature 96.6 F L 08/09/18 09:05 Pulse Rate 103 H 08/09/18 09:05 Respiratory Rate 18 08/09/18 09:05 Blood Pressure 132/94 08/09/18 09:05 O2 Sat by Pulse Oximetry (%) Laboratory Last Values WBC 2.9 K/mm3 (4.0-10.0) L 08/08/18 07:00 RBC 3.52 M/mm3 (4.00-5.60) L 08/08/18 07:00 Hgb 11.2 GM/dL (11.7-16.9) L 08/08/18 07:00 Hct 33.5 % (35.4-49) L 08/08/18 07:00 MCV 95.2 fl (80-96) 08/08/18 07:00 MCH 31.8 pg (25.7-33.7) 08/08/18 07:00 MCHC 33.4 g/dl (32.0-35.9) 08/08/18 07:00 RDW 14.0 % (11.9-15.9) 08/08/18 07:00 Plt Count 76 K/MM3 (134-434) L D 08/08/18 07:00 MPV 9.3 fl (7.5-11.1) 08/08/18 07:00 Sodium 140 mmol/L (136-145) 08/08/18 07:00 Potassium 3.7 mmol/L (3.5-5.1) 08/08/18 07:00 Chloride 106 mmol/L (98-107) 08/08/18 07:00 Carbon Dioxide 26 mmol/L (21-32) 08/08/18 07:00 Anion Gap 8 MMOL/L (8-16) 08/08/18 07:00 BUN 11 mg/dL (7-18) 08/08/18 07:00 Creatinine 0.9 mg/dL (0.55-1.3) 08/08/18 07:00 Creat Clearance w eGFR 89.32 (>60) 08/08/18 07:00 Random Glucose 78 mg/dL (74-106) 08/08/18 07:00 Calcium 8.0 mg/dL (8.5-10.1) L 08/08/18 07:00 Total Bilirubin 0.7 mg/dL (0.2-1) 08/08/18 07:00 AST 214 U/L (15-37) H 08/08/18 07:00 ALT 73 U/L (13-61) H 08/08/18 07:00 Alkaline Phosphatase 119 U/L (45-117) H 08/08/18 07:00 Total Protein 7.1 g/dl (6.4-8.2) 08/08/18 07:00 Albumin 3.4 g/dl (3.4-5.0) 08/08/18 07:00 Urine Color Yellow 08/07/18 23:10 Urine Appearance Clear 08/07/18 23:10 Urine pH 5.5 (5.0-8.0) 08/07/18 23:10 Ur Specific [place] 1.003 (1.010-1.035) L 08/07/18 23:10 Urine Protein Negative (NEGATIVE) 08/07/18 23:10 Urine Glucose (UA) Negative (NEGATIVE) 08/07/18 23:10 Urine Ketones Negative (NEGATIVE) 08/07/18 23:10 Urine Blood Negative (NEGATIVE) 08/07/18 23:10 Urine Nitrite Negative (NEGATIVE) 08/07/18 23:10 Urine Bilirubin Negative (NEGATIVE) 08/07/18 23:10 Urine Urobilinogen 0.2 mg/dL (0.2-1.0) 08/07/18 23:10 Ur Leukocyte Esterase Negative (NEGATIVE) 08/07/18 23:10 HIV 1&2 Antibody Screen Negative 08/08/18 07:00 HIV P24 Antigen Negative 08/08/18 07:00 lab noted low wbc elevated ast Assessment: 08/09/18 11:34 withdrawal sx discuss alcohol related ast elevation Plan: continue detox repeat ast cbc
[2018-08-09] MEDS: THIAMINE HCL 100 MG TABLET (FP) PO SCH (22:26)
[2018-08-09] MEDS: MELATONIN 5 MG TABLETS PO PRN (22:26)
[2018-08-09] MEDS ORDERED: chlordiazePOXIDE HCL 10 MG CAPSULE PO SCH (23:00)
[2018-08-09] MEDS ORDERED: chlordiazePOXIDE HCL 10 MG CAPSULE PO PRN (23:00)
[2018-08-09] MEDS ORDERED: LORazepam 1 MG TABLET PO SCH (23:00)
[2018-08-10] MEDS: LORazepam 0.5 MG TABLET PO SCH ×4 (05:24→23:29)
[2018-08-10 10:12] LABS: BASO % 0.6 % (0-2.0); EOS % 2.9 % (0-4.5); LYMPH % 29.9 % (8-40); MCH 31.6 pg (25.7-33.7); MCHC 32.6 g/dl (32.0-35.9); MEAN PLT VOLUME 10.4 fl (7.5-11.1); MONO % 12.8 % (3.8-10.2); NEUT % 53.8 % (42.8-82.8); PLATELET COUNT 69 K/MM3 (134-434); RBC 3.81 M/mm3 (4.00-5.60); RDW 13.9 % (11.9-15.9); WHITE BLOOD COUNT 2.9 K/mm3 (4.0-10.0)
[2018-08-10] MEDS: PRENATAL VITAMINS W/ FOLIC ACID TABLET (FP) PO SCH (10:24)
[2018-08-10] MEDS: NICOTINE 14 MG/24 HOURS TOPICAL PATCH TD SCH (10:24)
[2018-08-10] MEDS: hydrOXYzine PAMOATE 25 MG CAPSULE (FP) PO PRN (10:25)
[2018-08-10] MEDS: METHOCARBAMOL 500 MG TABLET PO PRN ×2 (13:57→18:56)
--- NOTE | 2018-08-10 14:13 | PN ---
S CIWA - CIWA Score Nausea/Vomitin-No Nausea/No Vomiting Muscle Tremors: 1-None Visible, but [place] Anxiety: 3 Agitation: 2 Paroxysmal Sweats: No Perspiration Orientation: 0-Oriented Tacttile Disturbances: 0-None Auditory Disturbances: 0-None Visual Disturbances: 0-None Headache: 0-None Present CIWA-Ar Total Score: 6 BHS Progress Note (SOAP) Subjective: Pt feeling a bit anxious- requesting to see O: Vital Signs - 24 hr 08/09/18 08/09/18 08/09/18 17:04 21:29 21:46 Temperature 97.8 F 100.1 F H 97 F L Pulse Rate 103 H 87 Respiratory 16 18 Rate Blood Pressure 111/85 121/85 08/10/18 08/10/18 08/10/18 00:30 03:30 06:28 Temperature 97.7 F Pulse Rate 63 Respiratory 18 18 18 Rate Blood Pressure 122/72 08/10/18 08/10/18 09:13 13:51 Temperature 97.3 F L 96.2 F L Pulse Rate 89 92 H Respiratory 18 18 Rate Blood Pressure 137/92 115/82 Laboratory Tests 08/07/18 08/08/18 08/08/18 23:10 07:00 07:00 WBC 2.9 L RBC 3.52 L Hgb 11.2 L Hct 33.5 L MCV 95.2 MCH 31.8 MCHC 33.4 RDW 14.0 Plt Count 76 L D MPV 9.3 Absolute Neuts (auto) Neutrophils % Lymphocytes % Monocytes % Eosinophils % Basophils % Nucleated RBC % Sodium Potassium Chloride Carbon Dioxide Anion Gap BUN Creatinine Creat Clearance w eGFR Random Glucose Calcium Total Bilirubin AST ALT Alkaline Phosphatase Total Protein Albumin Urine Color Yellow Urine Appearance Clear Urine pH 5.5 Ur Specific [place] 1.003 L Urine Protein Negative Urine Glucose (UA) Negative Urine Ketones Negative Urine Blood Negative Urine Nitrite Negative Urine Bilirubin Negative Urine Urobilinogen 0.2 Ur Leukocyte Esterase Negative HIV 1&2 Antibody Screen Negative HIV P24 Antigen Negative 08/08/18 08/10/18 08/10/18 07:00 07:00 07:00 WBC 2.9 L RBC 3.81 L Hgb 12.0 Hct 37.0 MCV 97.0 H MCH 31.6 MCHC 32.6 RDW 13.9 Plt Count 69 L MPV 10.4 D Absolute Neuts (auto) 1.5 Neutrophils % 53.8 Lymphocytes % 29.9 Monocytes % 12.8 H Eosinophils % 2.9 Basophils % 0.6 Nucleated RBC % 0 Sodium 140 Potassium 3.7 Chloride 106 Carbon Dioxide 26 Anion Gap 8 BUN 11 Creatinine 0.9 Creat Clearance w eGFR 89.32 Random Glucose 78 Calcium 8.0 L Total Bilirubin 0.7 AST 214 H 132 H ALT 73 H Alkaline Phosphatase 119 H Total Protein 7.1 Albumin 3.4 Urine Color Urine Appearance Urine pH Ur Specific [place] Urine Protein Urine Glucose (UA) Urine Ketones Urine Blood Urine Nitrite Urine Bilirubin Urine Urobilinogen Ur Leukocyte Esterase HIV 1&2 Antibody Screen HIV P24 Antigen a/p: continue alcohol detox protocol- d/c planned for tomorrow, to d/w counselor re exterminator termite relapse prevention plans
[2018-08-10] MEDS: IBUPROFEN 400 MG TABLET (FP) PO PRN (18:56)
[2018-08-10 21:43] VITALS: PULSE 90
[2018-08-10] MEDS: THIAMINE HCL 100 MG TABLET (FP) PO SCH (22:05)
[2018-08-10] MEDS: MELATONIN 5 MG TABLETS PO PRN (22:06)
[2018-08-10] MEDS ORDERED: LORazepam 0.5 MG TABLET PO SCH (23:00)
[2018-08-10] MEDS ORDERED: chlordiazePOXIDE HCL 10 MG CAPSULE PO SCH (23:00)
[2018-08-11] MEDS: METHOCARBAMOL 500 MG TABLET PO PRN (00:17)
[2018-08-11] MEDS: hydrOXYzine PAMOATE 25 MG CAPSULE (FP) PO PRN (00:17)
[2018-08-11 07:22] VITALS: BP 128/91; TEMP 98.2
--- NOTE | 2018-08-11 10:29 | DS ---
[facility] Detox Discharge Summary Admission Date: 08/07/18 Discharge Date: 08/11/18 - History Present History: Alcohol Dependence Additional Comments: PT WAS REMINDED TO FOLLOW UP AT [facility] FOR PRIMARY CARE MANAGEMENT WHEN NEEDED. - Physical Exam Results Vital Signs: Vital Signs Temperature 98.2 F 08/11/18 07:22 Pulse Rate 90 08/11/18 07:22 Respiratory Rate 18 08/11/18 07:22 Blood Pressure 128/91 08/11/18 07:22 O2 Sat by Pulse Oximetry (%) - Treatment Hospital Course: Detox Protocol Followed, Detoxed Safely, Responded well, Discharged Condition Good Patient has Accepted a Rehab Referral to: NO--ENCOURAGED TO GO TO PROJECT CONTACT OP - Medication Discharge Medications: Ambulatory Orders Azithromycin 250 mg PO DAILY 08/07/18 - Diagnosis (1) Alcohol dependence with uncomplicated withdrawal Current Visit: Yes Status: Acute (2) Cannabis dependence Current Visit: Yes Status: Acute (3) HTN (hypertension) Current Visit: Yes Status: Chronic Qualifiers: Hypertension type: essential hypertension Qualified Code(s): I10 - Essential (primary) hypertension (4) Nicotine dependence Current Visit: Yes Status: Acute Qualifiers: Nicotine product type: cigarettes Substance use status: in withdrawal Qualified Code(s): F17.213 - Nicotine dependence, cigarettes, with withdrawal - AMA Did Patient Leave Against Medical Advice: No
== END 2018-08-11 08:43 | disposition home or self-care (01) | DRG 775 ==
LOC: YASAS 20:52 → Y3N 22:01
PROVIDERS: ADMIT Surgery; ATTEND Surgery
PROC: HZ2ZZZZ Detoxification Services for Substance Abuse Treatment (ICD-10-PCS; principal; 2018-08-07)
DX: F10.230 Alcohol dependence with withdrawal, uncomplicated (principal); F12.20 Cannabis dependence, uncomplicated; F17.213 Nicotine dependence, cigarettes, with withdrawal; F19.24 Other psychoactive substance dependence with psychoactive substance-induced mood disorder; F31.9 Bipolar disorder, unspecified; F43.10 Post-traumatic stress disorder, unspecified; G47.00 Insomnia, unspecified; D64.9 Anemia, unspecified; I10 Essential (primary) hypertension; R94.5 Abnormal results of liver function studies
CPT/HCPCS: 36415; 80053; 81003; 84450; 85025; 85027; 87389

== ENCOUNTER 2018-09-07 09:31 | Inpatient (IN) | payer OTHER ==
[2018-09-07 10:02] VITALS: BMI 17.4
--- NOTE | 2018-09-07 10:39 | HP ---
CIWA Score Nausea/Vomitin Muscle Tremors: None Anxiety: 4-Mod. Anxious/Guarded Agitation: 3 Paroxysmal Sweats: No Perspiration Orientation: 0-Oriented Tacttile Disturbances: 1-Very Mild Itch/Numbness Auditory Disturbances: 0-None Visual Disturbances: 0-None Headache: 5-Severe CIWA-Ar Total Score: 16 - Admission Criteria OASAS Guidelines: Admission for Medically Managed Detox: Requires at least one of the followin. CIWA greater than 12 2. Seizures within the past 24 hours 3. Delirium tremens within the past 24 hours 4. Hallucinations within the past 24 hours 5. Acute intervention needed for co occurring medical disorder 6. Acute intervention needed for co occurring psychiatric disorder 7. Severe withdrawal that cannot be handled at a lower level of care (continued vomiting, continued diarrhea, abnormal vital signs) requiring intravenous medication and/or fluids 8. Admission ROS S - HPI Allergies/Adverse Reactions: Allergies Allergy/AdvReac Type Severity Reaction Status Date / Time No Known Allergies Allergy Verified 09/07/18 09:49 History of Present Illness: pt here requesting detox from etoh use reports 6-10 beers/day , prior detox at this facility through 08/11/18 , relapsed after of a friend " a few weeks ago " , latest use yesterday morning, current symptoms as above. Past medical hx of Anemia, HTN, depression, bipolar and PTSD. Denies suicidal / homicidal ideation. Denies hx of seizures, reports hx of alcohol blackouts . tobacco : " once in a blue barber " Exam Limitations: No Limitations - Ebola screening Have you traveled outside of the country in the last 21 days: No (N) Have you had contact with anyone from an Ebola affected area: No Do you have a fever: No - Review of Systems Constitutional: Loss of Appetite EENT: reports: Other (denies vision loss) Respiratory: reports: No Symptoms reported Cardiac: reports: No Symptoms Reported GI: reports: See HPI : reports: No Symptoms Reported Musculoskeletal: reports: Muscle Pain Integumentary: reports: No Symptoms Reported Neuro: reports: See HPI, Headache Endocrine: reports: No Symptoms Reported Psychiatric: reports: Orientated x3, Anxious, Depressed Patient History - Patient Medical History Hx Anemia: No Hx Asthma: No Hx Chronic Obstructive Pulmonary Disease (COPD): No Hx Cancer: No Hx Cardiac Disorders: No Hx Congestive Heart Failure: No Hx Hypertension: Yes Hx Hypercholesterolemia: No Hx Pacemaker: No HX Cerebrovascular Accident: No Hx Seizures: No Hx Dementia: No Hx Diabetes: No Hx Gastrointestinal Disorders: No Hx Liver Disease: No Hx Genitourinary Disorders: No Hx Sexually Transmitted Disorders: No Hx Renal Disease (ESRD): No Hx Thyroid Disease: No Hx Human Immunodeficiency Virus (HIV): No (NEGATIVE HX) Hx Hepatitis C: No Hx Depression: Yes Hx Suicide Attempt: No Hx Bipolar Disorder: Yes (i have mood swings) Hx Schizophrenia: No - Patient Surgical History Past Surgical History: Yes Hx Neurologic Surgery: No Hx Cataract Extraction: No Hx Cardiac Surgery: No Hx Lung Surgery: No Hx Breast Surgery: No Hx Breast Biopsy: No Hx Abdominal Surgery: No Hx Appendectomy: Yes Hx Cholecystectomy: No Hx Genitourinary Surgery: No Hx Section: No Hx Orthopedic Surgery: No Other Surgical History: tonsilectomy at age 7/left eye trauma in 2017, appendectomy Anesthesia Reaction: No - PPD History Date: 10/28/17 Results: 0 mm - Smoking Cessation Smoking history: Current some day smoker Have you smoked in the past 12 months: Yes Aproximately how many cigarettes per day: 3 Hx Chewing Tobacco Use: No Initiated information on smoking cessation: No - Substances abused Alcohol Substance route: Oral Frequency: Daily Amount used: 1 6 pack per day and more Age of first use: 20 Date of last use: 09/06/18 Marijuana/Hashish Substance route: Smoking Frequency: Daily Amount used: 4 joints Age of first use: 7 Date of last use: 09/05/18 Family Disease History - Family Disease History Family Disease History: Diabetes: Father (HTN/ALCOHOLISM-), Mother (HTN/ ALCOHOLISM-), Other: Grandparent (-ALZHEIMERSDECEASED), Father, Mother Admission Physical Exam BHS - Vital Signs Vital Signs: Vital Signs - 24 hr 09/07/18 09/07/18 09:55 10:35 Temperature 98.0 F 98.0 F Pulse Rate 94 H 94 H Respiratory 17 17 Rate Blood Pressure 102/75 102/75 - Physical General Appearance: Yes: Disheveled, Mild Distress, Irritable, Anxious HEENTM: Yes: EOMI, Hearing grossly Normal, Normocephalic, Normal Voice Respiratory: Yes: Chest Non-Tender, Lungs Clear, Normal Breath Sounds, No Respiratory Distress, No Accessory Muscle Use Neck: Yes: No masses,lesions,Nodules, Trachea in good position Cardiology: Yes: Regular Rhythm, Regular Rate, S1, S2 Abdominal: Yes: Non Tender, Soft Back: Yes: Normal Inspection Musculoskeletal: Yes: Gait Steady Extremities: Yes: Normal Range of Motion, Non-Tender, Pedal Edema (trace) Neurological: Yes: Alert, Motor Strength 5/5, Depressed Affect Integumentary: Yes: Warm - Diagnostic (1) Alcohol dependence with uncomplicated withdrawal Current Visit: No Status: Acute Breathalyzer - Breathalyzer Breathalyzer: 0.141 Urine Drug Screen - Test Device Lot number: [id number] Expiration date: 06/07/20 - Control Is test valid?: Yes - Results Drug screen NEGATIVE: No Urine drug screen results: THC-Marijuana, BZO-Benzodiazepines Inpatient Rehab Admission - Rehab Decision to Admit Inpatient rehab admission?: No
[2018-09-07] MEDS ORDERED: MAGNESIUM HYDROX 2400MG/30ML ORAL SUSPENSION 30 ML CUP PO PRN (10:48)
[2018-09-07] MEDS ORDERED: ACETAMINOPHEN 325 MG TABLET (FP) PO PRN (10:48)
[2018-09-07] MEDS ORDERED: hydrOXYzine PAMOATE 25 MG CAPSULE (FP) PO PRN (10:48)
[2018-09-07] MEDS ORDERED: NICOTINE POLACRILEX 2 MG GUM BUC PRN (10:48)
[2018-09-07] MEDS ORDERED: BISMUTH SUBSALICYLATE 262 MG/15 ML BTL PO PRN (10:48)
[2018-09-07] MEDS ORDERED: MENTHOL/PHENOL 1 EACH UD MM PRN (10:48)
[2018-09-07] MEDS ORDERED: MAG HYDROX/AL HYDROX/SIMETH 30 ML UNIT-DOSE CUP PO PRN (10:48)
[2018-09-07] MEDS ORDERED: MAGNESIUM CITRATE 300 ML BOTTLE PO PRN (10:48)
[2018-09-07] MEDS ORDERED: diazePAM 5 MG TABLET PO ONE (11:05)
[2018-09-07] MEDS: diazePAM 5 MG TABLET PO SCH ×2 (14:13→22:11)
[2018-09-07] MEDS: MELATONIN 5 MG TABLETS PO PRN (22:11)
[2018-09-07] MEDS: THIAMINE HCL 100 MG TABLET (FP) PO SCH (22:11)
[2018-09-08] MEDS: diazePAM 5 MG TABLET PO SCH ×3 (05:16→22:19)
[2018-09-08] MEDS: ACETAMINOPHEN 325 MG TABLET (FP) PO PRN (08:31)
[2018-09-08] MEDS: diazePAM 5 MG TABLET PO PRN (10:11)
[2018-09-08] MEDS: PRENATAL VITAMINS W/ FOLIC ACID TABLET (FP) PO SCH (10:14)
--- NOTE | 2018-09-08 16:25 | PN ---
S CIWA - CIWA Score Nausea/Vomitin-No Nausea/No Vomiting Muscle Tremors: None Anxiety: 4-Mod. Anxious/Guarded Agitation: 2 Paroxysmal Sweats: 3 Orientation: 0-Oriented Tacttile Disturbances: 0-None Auditory Disturbances: 2-Mild Harshness/Frighten Visual Disturbances: 2-Mild Sensitivity Headache: 0-None Present CIWA-Ar Total Score: 13 S Progress Note (SOAP) Subjective: Sweating, Fatigue, Chills, Interrupted Sleep, Anxious, Poor Appetite. Objective: PATIENT A & O X 3, OBSERVED AMBULATING ON UNIT UNASSISTED. IN NO ACUTE DISTRESS. 09/08/18 16:24 Vital Signs Temperature 96.9 F L 09/08/18 13:42 Pulse Rate 102 H 09/08/18 13:42 Respiratory Rate 18 09/08/18 13:42 Blood Pressure 121/82 09/08/18 13:42 O2 Sat by Pulse Oximetry (%) ADMISSION LAB NOT YET DRAWN. Assessment: 09/08/18 16:24 WITHDRAWAL SYMPTOMS. Plan: CONTINUE DETOX. PO ENSURE FOR CALORIC SUPPLEMENTATION.
[2018-09-08] MEDS: MELATONIN 5 MG TABLETS PO PRN (22:19)
[2018-09-08] MEDS: THIAMINE HCL 100 MG TABLET (FP) PO SCH (22:19)
[2018-09-09] MEDS: ACETAMINOPHEN 325 MG TABLET (FP) PO PRN (05:11)
[2018-09-09] MEDS ORDERED: diazePAM 5 MG TABLET PO ONE (06:00)
[2018-09-09] MEDS: PRENATAL VITAMINS W/ FOLIC ACID TABLET (FP) PO SCH (10:15)
[2018-09-09] MEDS: diazePAM 5 MG TABLET PO PRN ×2 (10:17→22:04)
--- NOTE | 2018-09-09 14:51 | PN ---
S CIWA - CIWA Score Nausea/Vomitin-No Nausea/No Vomiting Muscle Tremors: 2 Anxiety: 4-Mod. Anxious/Guarded Agitation: 4-Moderately Restless Paroxysmal Sweats: 2 Orientation: 0-Oriented Tacttile Disturbances: 0-None Auditory Disturbances: 0-None Visual Disturbances: 0-None Headache: 0-None Present CIWA-Ar Total Score: 12 BHS Progress Note (SOAP) Subjective: cough body pain nausea Objective: 09/09/18 14:49 A & O x 3 gait steady agitated Vital Signs Temperature 97.8 F 09/09/18 14:12 Pulse Rate 79 09/09/18 14:12 Respiratory Rate 16 09/09/18 14:12 Blood Pressure 128/85 09/09/18 14:12 O2 Sat by Pulse Oximetry (%) labs pending Assessment: 09/09/18 14:53 withdrawal sx Plan: continue detox labs for a.m
[2018-09-09] MEDS: IBUPROFEN 400 MG TABLET (FP) PO PRN (17:24)
[2018-09-09] MEDS: MELATONIN 5 MG TABLETS PO PRN (22:04)
[2018-09-09] MEDS: THIAMINE HCL 100 MG TABLET (FP) PO SCH (22:04)
[2018-09-10 10:11] LABS: ALBUMIN 2.9 g/dl (3.4-5.0); BILIRUBIN,TOTAL 0.9 mg/dL (0.2-1); CALCIUM 8.8 mg/dL (8.5-10.1); CREATININE 0.9 mg/dL (0.55-1.3); POTASSIUM 3.9 mmol/L (3.5-5.1); TOT PROT 6.5 g/dl (6.4-8.2)
[2018-09-10] MEDS: PRENATAL VITAMINS W/ FOLIC ACID TABLET (FP) PO SCH (10:18)
[2018-09-10 10:52] LABS: BASO % 0.7 % (0-2.0); EOS % 1.7 % (0-4.5); HEMATOCRIT 32.2 % (35.4-49); HEMOGLOBIN 10.6 GM/dL (11.7-16.9); LYMPH % 24.1 % (8-40); MCH 31.9 pg (25.7-33.7); MEAN CELL VOLUME 96.5 fl (80-96); MEAN PLT VOLUME 10.3 fl (7.5-11.1); MONO % 11.6 % (3.8-10.2); NEUT % 61.9 % (42.8-82.8); PLATELET COUNT 106 K/MM3 (134-434); RBC 3.34 M/mm3 (4.00-5.60); RDW 13.1 % (11.9-15.9)
--- NOTE | 2018-09-10 14:09 | PN ---
[facility] CIWA - CIWA Score Nausea/Vomitin-Mild Nausea/No Vomiting Muscle Tremors: 3 Anxiety: 2 Agitation: 2 Paroxysmal Sweats: 1-Minimal Palms Moist Orientation: 1-Uncertain about Date Tacttile Disturbances: 0-None Auditory Disturbances: 0-None Visual Disturbances: 0-None Headache: 0-None Present CIWA-Ar Total Score: 10 S Progress Note (SOAP) Subjective: tremor nausea poor self mange on alcohol withdrawal sx irritable Objective: 09/10/18 14:13 Vital Signs Temperature 97.2 F L 09/10/18 13:42 Pulse Rate 82 09/10/18 13:42 Respiratory Rate 18 09/10/18 13:42 Blood Pressure 140/92 09/10/18 13:42 O2 Sat by Pulse Oximetry (%) Laboratory Last Values WBC 4.0 K/mm3 (4.0-10.0) 09/10/18 07:00 RBC 3.34 M/mm3 (4.00-5.60) L 09/10/18 07:00 Hgb 10.6 GM/dL (11.7-16.9) L 09/10/18 07:00 Hct 32.2 % (35.4-49) L 09/10/18 07:00 MCV 96.5 fl (80-96) H 09/10/18 07:00 MCH 31.9 pg (25.7-33.7) 09/10/18 07:00 MCHC 33.0 g/dl (32.0-35.9) 09/10/18 07:00 RDW 13.1 % (11.9-15.9) 09/10/18 07:00 Plt Count 106 K/MM3 (134-434) L D 09/10/18 07:00 MPV 10.3 fl (7.5-11.1) 09/10/18 07:00 Absolute Neuts (auto) 2.5 K/mm3 (1.5-8.0) 09/10/18 07:00 Neutrophils % 61.9 % (42.8-82.8) 09/10/18 07:00 Lymphocytes % 24.1 % (8-40) 09/10/18 07:00 Monocytes % 11.6 % (3.8-10.2) H 09/10/18 07:00 Eosinophils % 1.7 % (0-4.5) 09/10/18 07:00 Basophils % 0.7 % (0-2.0) 09/10/18 07:00 Nucleated RBC % 0 % (0-0) 09/10/18 07:00 Sodium 137 mmol/L (136-145) 09/10/18 07:00 Potassium 3.9 mmol/L (3.5-5.1) 09/10/18 07:00 Chloride 102 mmol/L (98-107) 09/10/18 07:00 Carbon Dioxide 29 mmol/L (21-32) 09/10/18 07:00 Anion Gap 6 MMOL/L (8-16) L 09/10/18 07:00 BUN 7 mg/dL (7-18) 09/10/18 07:00 Creatinine 0.9 mg/dL (0.55-1.3) 09/10/18 07:00 Est GFR (CKD-EPI)AfAm 115.02 09/10/18 07:00 Est GFR (CKD-EPI)NonAf 99.24 09/10/18 07:00 Random Glucose 86 mg/dL (74-106) 09/10/18 07:00 Calcium 8.8 mg/dL (8.5-10.1) 09/10/18 07:00 Total Bilirubin 0.9 mg/dL (0.2-1) 09/10/18 07:00 AST 132 U/L (15-37) H 09/10/18 07:00 ALT 116 U/L (13-61) H 09/10/18 07:00 Alkaline Phosphatase 184 U/L (45-117) H 09/10/18 07:00 Total Protein 6.5 g/dl (6.4-8.2) 09/10/18 07:00 Albumin 2.9 g/dl (3.4-5.0) L 09/10/18 07:00 lab noted discuss alcohol misuse related ast elevation
[2018-09-10] MEDS: ACETAMINOPHEN 325 MG TABLET (FP) PO PRN (17:42)
[2018-09-10] MEDS: THIAMINE HCL 100 MG TABLET (FP) PO SCH (22:06)
[2018-09-10] MEDS: MELATONIN 5 MG TABLETS PO PRN (22:06)
[2018-09-11] MEDS: IBUPROFEN 400 MG TABLET (FP) PO PRN (08:31)
[2018-09-11 09:06] VITALS: BP 123/77; PULSE 99; TEMP 98.7
--- NOTE | 2018-09-11 17:08 | DS ---
[facility] Detox Discharge Summary Admission Date: 09/07/18 Discharge Date: 09/11/18 - History Present History: Alcohol Dependence Additional Comments: PATIENT RETURNING HOME TO ATTEND TO PERSONAL MATTERS, THEN WILL RETURN TO APPLY FOR ADMISSION TO [facility] ([place], [place]) WITHIN THE NEXT FEW DAYS. PATIENT ADVISED TO FOLLOW-UP WITH DECISION ANALYST WHEN POSSIBLE FOR GENERAL MEDICAL ASSESSMENT AND FOR ELEVATED LIVER ENZYMES AND FOR ANEMIA AND THROMBOCYTOPENIA NOTED ON DETOX ADMISSION LABORATORY ASSESSMENT. PATIENT VERBALIZED UNDERSTANDING OF ALL RECOMMENDATIONS PRESENTED TO HIM PRIOR TO TIME OF DISCHARGE FROM DETOX UNIT. COPIES OF RESULTS OF ALL LABS DRAWN WHILE ADMITTED FOR DETOX GIVEN TO PATIENT AT TIME OF DISCHARGE FROM DETOX UNIT. PATIENT WAS DISCHARGED FROM DETOX UNIT IN STABLE MEDICAL CONDITION. Pertinent Past History: Anemia, Elevated Liver Enzymes (While Admitted For Detox), HTN, History Of Depression, History Of Bipolar Disorder, History Of P.T.S.D. - Physical Exam Results Vital Signs: Vital Signs Temperature 98.7 F 09/11/18 09:05 Pulse Rate 99 H 09/11/18 09:05 Respiratory Rate 18 09/11/18 09:05 Blood Pressure 123/77 09/11/18 09:05 O2 Sat by Pulse Oximetry (%) Pertinent Admission Physical Exam Findings: WITHDRAWAL SYMPTOMS. Laboratory Tests 09/10/18 09/10/18 07:00 07:00 WBC 4.0 RBC 3.34 L Hgb 10.6 L Hct 32.2 L MCV 96.5 H MCH 31.9 MCHC 33.0 RDW 13.1 Plt Count 106 L D MPV 10.3 Absolute Neuts (auto) 2.5 Neutrophils % 61.9 Lymphocytes % 24.1 Monocytes % 11.6 H Eosinophils % 1.7 Basophils % 0.7 Nucleated RBC % 0 Sodium 137 Potassium 3.9 Chloride 102 Carbon Dioxide 29 Anion Gap 6 L BUN 7 Creatinine 0.9 Est GFR (CKD-EPI)AfAm 115.02 Est GFR (CKD-EPI)NonAf 99.24 Random Glucose 86 Calcium 8.8 Total Bilirubin 0.9 AST 132 H ALT 116 H Alkaline Phosphatase 184 H Total Protein 6.5 Albumin 2.9 L LABS NOTED. - Treatment Hospital Course: Detox Protocol Followed, Detoxed Safely, Responded well, Discharged Condition Good Patient has Accepted a Rehab Referral to: PT. WILL RETURN IN NEXT FEW DAYS [facility] - Medication Discharge Medications: Ambulatory Orders NK [No Known Home Medication] 09/07/18 - Diagnosis (1) Elevated liver enzymes Status: Acute (2) Alcohol dependence with uncomplicated withdrawal Status: Acute (3) Thrombocytopenia Status: Acute (4) Anemia Status: Acute Qualifiers: Anemia type: unspecified type Qualified Code(s): D64.9 - Anemia, unspecified - AMA Did Patient Leave Against Medical Advice: No
== END 2018-09-11 09:34 | disposition home or self-care (01) | DRG 775 ==
LOC: YASAS 09:31 → Y3N 10:58
PROVIDERS: ADMIT Surgery; ATTEND Surgery
PROC: HZ2ZZZZ Detoxification Services for Substance Abuse Treatment (ICD-10-PCS; principal; 2018-09-07)
DX: F10.230 Alcohol dependence with withdrawal, uncomplicated (principal); F12.20 Cannabis dependence, uncomplicated; F17.210 Nicotine dependence, cigarettes, uncomplicated; F31.9 Bipolar disorder, unspecified; D69.6 Thrombocytopenia, unspecified; I10 Essential (primary) hypertension; D64.9 Anemia, unspecified; R94.5 Abnormal results of liver function studies
CPT/HCPCS: 36415; 80053; 85025

== ENCOUNTER 2018-09-21 13:31 | Inpatient (IN) | payer OTHER ==
[2018-09-21 17:39] VITALS: BMI 17.8
--- NOTE | 2018-09-21 19:40 | HP ---
CIWA Score Nausea/Vomitin-Mild Nausea/No Vomiting Muscle Tremors: 1-None Visible, but [place] Anxiety: 1-Mildly Anxious Agitation: 4-Moderately Restless Paroxysmal Sweats: 3 Orientation: 0-Oriented Tacttile Disturbances: 2-Mild Itch/Numbness/Burn Auditory Disturbances: 1-Very Mild Visual Disturbances: 1-Very Mild Sensitivity Headache: 2-Mild CIWA-Ar Total Score: 16 - Admission Criteria OASAS Guidelines: Admission for Medically Managed Detox: Requires at least one of the followin. CIWA greater than 12 2. Seizures within the past 24 hours 3. Delirium tremens within the past 24 hours 4. Hallucinations within the past 24 hours 5. Acute intervention needed for co occurring medical disorder 6. Acute intervention needed for co occurring psychiatric disorder 7. Severe withdrawal that cannot be handled at a lower level of care (continued vomiting, continued diarrhea, abnormal vital signs) requiring intravenous medication and/or fluids 8. Patient presents the following: CIWA greater than 12 Admission Criteria Met: Admission criteria met Admission ROS [facility] Chief Complaint: C/O WITHDRAWAL SX'S Allergies/Adverse Reactions: Allergies Allergy/AdvReac Type Severity Reaction Status Date / Time No Known Allergies Allergy Verified 09/21/18 17:21 History of Present Illness: 48 Y.O. MALE WITH ALCOHOLISM HERE FOR DETOX. CLIENT IS KNOWN TO THIS PROGRAM. DC 10 DAYS AGO. RETURNS TODAY FOR C/O WITHDRAWAL SX'S. CIWA 16. HE REPORTS IMMEDIATELY RELAPSING AFTER DC. HE DRINKS DAILY AND IS DEALING WITH RECENT IN THE FAMILY. HE REPORTS HE CANT STOP DRINKING AND WHEN HE TRIES HE EXPERIENCES TERRIBLE WITHDRAWAL SX'S. REPORTS + BLACKOUTS FROM EXCESSIVE DRINKING BUT DENIES SEIZURE D/O.DENIES SI/HI/ AVH. HOMELESS, UNEMPLOYED, DENIES LEGALS. Exam Limitations: No Limitations - Ebola screening Have you traveled outside of the country in the last 21 days: No Have you had contact with anyone from an Ebola affected area: No Do you have a fever: No - Review of Systems Constitutional: Chills, Loss of Appetite, Malaise, Night Sweats, Unexplained wgt Loss EENT: reports: Eye Pain (LIGHT SENSITIVITY), Other (RUNNY NOSE) Respiratory: reports: Shortness of Breath Cardiac: reports: No Symptoms Reported GI: reports: Nausea, Poor Appetite, Poor Fluid Intake, Vomiting : reports: No Symptoms Reported Musculoskeletal: reports: Back Pain (CHRONIC), Joint Pain (CHRONIC) Integumentary: reports: Other (PILORECTION) Neuro: reports: Headache, Numbness, Tremors Endocrine: reports: No Symptoms Reported Hematology: reports: Anemia (HX/O) Psychiatric: reports: Orientated x3, Agitated (IRRITABLE), Depressed (DENIES SI/ HI/AVH) Other Systems: Reviewed and Negative Patient History - Patient Medical History Hx Anemia: Yes (HX/O) Hx Asthma: No Hx Chronic Obstructive Pulmonary Disease (COPD): No Hx Cancer: No Hx Cardiac Disorders: No Hx Congestive Heart Failure: No Hx Hypertension: Yes Hx Hypercholesterolemia: No Hx Pacemaker: No HX Cerebrovascular Accident: No Hx Seizures: No Hx Dementia: No Hx Diabetes: No Hx Gastrointestinal Disorders: No Hx Liver Disease: No Hx Genitourinary Disorders: No Hx Sexually Transmitted Disorders: No Hx Renal Disease (ESRD): No Hx Thyroid Disease: No Hx Human Immunodeficiency Virus (HIV): No Hx Hepatitis C: No Hx Depression: Yes Hx Suicide Attempt: No Hx Bipolar Disorder: Yes Hx Schizophrenia: No Other Medical History: DENIES - Patient Surgical History Past Surgical History: Yes Hx Neurologic Surgery: No Hx Cataract Extraction: No Hx Cardiac Surgery: No Hx Lung Surgery: No Hx Breast Surgery: No Hx Breast Biopsy: No Hx Abdominal Surgery: No Hx Appendectomy: Yes Hx Cholecystectomy: No Hx Genitourinary Surgery: No Hx Section: No Hx Orthopedic Surgery: No Other Surgical History: tonsilectomy at age 7/left eye trauma in 2017, appendectomy Anesthesia Reaction: No - PPD History Previous Implant?: Yes Documented Results: Negative w/proof Implanted On Prior [facility] Admission?: Yes Date: 10/28/17 Results: 0 mm PPD to be Administered?: No - Smoking Cessation Smoking history: Current some day smoker Have you smoked in the past 12 months: Yes Aproximately how many cigarettes per day: 3 Cigars Per Day: 0 Hx Chewing Tobacco Use: No Initiated information on smoking cessation: Yes 'Breaking Loose' booklet given: 09/21/18 - Substance & Tx. History Hx Alcohol Use: Yes Hx Substance Use: Yes Substance Use Type: Alcohol, Marijuana Hx Substance Use Treatment: Yes ([facility]) - Substances abused Alcohol Substance route: Oral Frequency: Daily Amount used: 1 6 pack per day and more Age of first use: 20 Date of last use: 09/20/18 Marijuana/Hashish Substance route: Smoking Frequency: Daily Amount used: 4 joints Age of first use: 7 Date of last use: 09/21/18 Family Disease History - Family Disease History Family Disease History: Diabetes: Father (HTN/ALCOHOLISM-), Mother (HTN/ ALCOHOLISM-), Other: Grandparent (-ALZHEIMERSDECEASED), Father, Mother Admission Physical Exam [facility] - Vital Signs Vital Signs: Vital Signs - 24 hr 09/21/18 17:21 Temperature 97.1 F L Pulse Rate 80 Respiratory 18 Rate Blood Pressure 128/91 - Physical General Appearance: Yes: Disheveled, Mild Distress, Alcohol on Breath, Cachetic , Tremorous, Anxious, Other (ALMODUROUS) HEENTM: Yes: EOMI, Normocephalic, Normal Voice, ISIDRA, Pharynx Normal, Rhinorrhea Respiratory: Yes: Chest Non-Tender, Lungs Clear, Normal Breath Sounds, No Respiratory Distress, No Accessory Muscle Use Neck: Yes: No masses,lesions,Nodules, Supple, Trachea in good position Breast: Yes: Breast Exam Deferred Cardiology: Yes: Regular Rhythm, S1, S2, Tachycardia Abdominal: Yes: Normal Bowel Sounds, Non Tender, Soft, Surgical Scar Genitourinary: Yes: Within Normal Limits (NO C/O) Back: Yes: Normal Inspection Musculoskeletal: Yes: full range of Motion, Gait Steady Extremities: Yes: Normal Capillary Refill, Normal Range of Motion, Tremors (FELT ) Neurological: Yes: Fully Oriented, Alert, Motor Strength 5/5, Depressed Affect Integumentary: Yes: Cold (COOL), Other (LIORECTION) Lymphatic: Yes: Within Normal Limits - Diagnostic (1) Alcohol dependence with uncomplicated withdrawal Current Visit: Yes Status: Acute (2) Cannabis dependence Current Visit: Yes Status: Acute (3) Nicotine dependence Current Visit: Yes Status: Chronic Qualifiers: Nicotine product type: cigarettes Substance use status: in withdrawal Qualified Code(s): F17.213 - Nicotine dependence, cigarettes, with withdrawal (4) Bipolar disorder Current Visit: Yes Status: Chronic (5) HTN (hypertension) Current Visit: Yes Status: Chronic Qualifiers: Hypertension type: essential hypertension Qualified Code(s): I10 - Essential (primary) hypertension (6) Substance induced mood disorder Current Visit: Yes Status: Chronic Cleared for Admission [facility] - Detox or Rehab [facility] Level of Care: Medically Managed Detox Regimen/Protocol: Librium Claeared for Rehab Admission: No Breathalyzer - Breathalyzer Breathalyzer: 0.230 Urine Drug Screen - Test Device Lot number: [id number] Expiration date: 06/07/20 - Control Is test valid?: Yes - Results Drug screen NEGATIVE: No Urine drug screen results: THC-Marijuana, BZO-Benzodiazepines Inpatient Rehab Admission - Rehab Decision to Admit Inpatient rehab admission?: No
[2018-09-21] MEDS ORDERED: METHOCARBAMOL 500 MG TABLET PO PRN (19:45)
[2018-09-21] MEDS ORDERED: MAG HYDROX/AL HYDROX/SIMETH 30 ML UNIT-DOSE CUP PO PRN (19:45)
[2018-09-21] MEDS ORDERED: chlordiazePOXIDE HCL 25 MG CAPSULE PO PRN (19:45)
[2018-09-21] MEDS ORDERED: ONDANSETRON *ODT* 4 MG TABLET SL PRN (19:45)
[2018-09-21] MEDS ORDERED: hydrOXYzine PAMOATE 25 MG CAPSULE (FP) PO PRN (19:45)
[2018-09-21] MEDS ORDERED: NICOTINE POLACRILEX 2 MG GUM BUC PRN (19:45)
[2018-09-21] MEDS ORDERED: P-EPHED 60MG/TRIPROLIDI 2.5MG TABLET PO PRN (19:45)
[2018-09-21] MEDS ORDERED: MAGNESIUM HYDROX 2400MG/30ML ORAL SUSPENSION 30 ML CUP PO PRN (19:45)
[2018-09-21] MEDS ORDERED: MENTHOL/PHENOL 1 EACH UD MM PRN (19:45)
[2018-09-21] MEDS ORDERED: ACETAMINOPHEN 325 MG TABLET (FP) PO PRN (19:45)
[2018-09-21] MEDS ORDERED: BISMUTH SUBSALICYLATE 524 MG/30 ML UD PO PRN (19:45)
[2018-09-21] MEDS ORDERED: MAGNESIUM CITRATE 300 ML BOTTLE PO PRN (19:45)
[2018-09-21] MEDS ORDERED: DICYCLOMINE HCL 10 MG CAPSULE PO PRN (19:45)
[2018-09-21] MEDS ORDERED: guaiFENesin 200 MG/10 ML 10 ML UNIT-DOSE CUPS PO PRN (19:45)
[2018-09-21] MEDS: THIAMINE HCL 100 MG TABLET (FP) PO SCH (21:11)
[2018-09-21] MEDS: MELATONIN 5 MG TABLETS PO PRN (21:11)
[2018-09-21] MEDS: chlordiazePOXIDE HCL 25 MG CAPSULE PO SCH (22:34)
[2018-09-22] MEDS: chlordiazePOXIDE HCL 25 MG CAPSULE PO SCH ×4 (05:35→22:17)
[2018-09-22] MEDS: PRENATAL VITAMINS W/ FOLIC ACID TABLET (FP) PO SCH (11:03)
[2018-09-22] MEDS: ACETAMINOPHEN 325 MG TABLET (FP) PO PRN (11:04)
[2018-09-22 11:05] LABS: PH,URINE 5.5 (5.0-8.0); URINE APPEARANCE CLEAR; URINE BILIRUBIN NEGATIVE (NEGATIVE); URINE COLOR YELLOW; URINE GLUCOSE (UA) NEGATIVE (NEGATIVE); URINE KETONE NEGATIVE (NEGATIVE); URINE LEUK ESTERASE NEGATIVE (NEGATIVE); URINE NITRITE NEGATIVE (NEGATIVE); URINE PROTEIN NEGATIVE (NEGATIVE); URINE UROBILINOGEN 0.2 mg/dL (0.2-1.0)
[2018-09-22] MEDS: NICOTINE 14 MG/24 HOURS TOPICAL PATCH TD SCH (11:06)
--- NOTE | 2018-09-22 11:06 | PN ---
S CIWA - CIWA Score Nausea/Vomitin-No Nausea/No Vomiting Muscle Tremors: 2 Anxiety: 2 Agitation: 2 Paroxysmal Sweats: 2 Orientation: 0-Oriented Tacttile Disturbances: 0-None Auditory Disturbances: 0-None Visual Disturbances: 0-None Headache: 2-Mild CIWA-Ar Total Score: 10 BHS Progress Note (SOAP) Subjective: c/o sweats, headache, shakes, and anxiety. Objective: 09/22/18 11:05 Vital Signs 09/22/18 09/22/18 09/22/18 03:30 04:00 04:30 Temperature Pulse Rate 66 66 69 Respiratory 18 Rate Blood Pressure 09/22/18 09/22/18 09/22/18 05:00 05:30 06:00 Temperature Pulse Rate 69 69 72 Respiratory 18 18 18 Rate Blood Pressure 09/22/18 09/22/18 09/22/18 06:16 06:30 07:00 Temperature 98.1 F Pulse Rate 72 72 77 Respiratory 18 18 18 Rate Blood Pressure 123/76 09/22/18 09/22/18 09/22/18 07:30 08:00 08:30 Temperature Pulse Rate 79 76 78 Respiratory 18 18 16 Rate Blood Pressure 09/22/18 09:34 Temperature 96.5 F L Pulse Rate 85 Respiratory 20 Rate Blood Pressure 142/90 Labs pending. Assessment: 09/22/18 11:05 AOX3, in no acute distress Full ROM, ambulating in the unit. Withdrawal symptoms. Plan: continue detox. increase fluids.
[2018-09-22] MEDS: IBUPROFEN 400 MG TABLET (FP) PO PRN (13:27)
--- NOTE | 2018-09-22 17:39 | CONSULT ---
[facility] Psychiatric Consult - Data Date of interview: 09/22/18 Admission source: [facility] Identifying data: This is one of several admissions to [facility] for this 48 y/ o AA male, self-referred for detoxification (alcohol, cannabis). Examined at [address] [place] [address]. Patient is single without dependents, homeless, unemployed and supported on Public Assistance. Substance Abuse History: Confirmed by patient in this session. Details in current [facility] report as follows : Smoking history: Current some day smoker. Have you smoked in the past 12 months: Yes. Aproximately how many cigarettes per day : 3. Cigars Per Day: 0. Hx Chewing Tobacco Use: No. Initiated information on smoking cessation: Yes. 'Breaking Loose' booklet given: 09/21/18. - Substance & Tx. History. Hx Alcohol Use: Yes. Hx Substance Use: Yes. Substance Use Type : Alcohol, Marijuana. Hx Substance Use Treatment: Yes ([facility]). - Substances abused. Alcohol. Substance route: Oral. Frequency: Daily. Amount used: 1 6 pack per day and more. Age of first use: 20. Date of last use: 09/20/18. * * Marijuana/Hashish. Substance route: Smoking. Frequency: Daily. Amount used : 4 joints. Age of first use: 7. Date of last use: 09/21/18 Medical History: No changes since encounter of 08/2018 : medical profile is remarkable for anemia, GERD, antecedent of trauma to left eye (underwent eye surgery), hypertension and history of appendectomy + tonsillectomy (childhood). Psychiatric History: Patient denies history of psychiatric hospitalizations. Denies prescriptions for psychotropic medications. Mr Pastrana denies having contact with psychiatrist/therapists. Off psychotropic medications for several months. Has no recollection of any psychiatric diagnosis. Patient denies history of suicide attempts. Physical/Sexual Abuse/Trauma History: No history. Additional Comment: Urine drug screen results: THC-Marijuana, BZO- Benzodiazepines. Noted. Mental Status Exam - Mental Status Exam Alert and Oriented to: Time, Place, Person Cognitive Function: Good Patient Appearance: Unkempt, Disheveled Mood: Withdrawn Affect: Appropriate, Normal Range Patient Behavior: Fatigued, Appropriate, Cooperative Speech Pattern: Clear Voice Loudness: Normal Thought Process: Goal Oriented Thought Disorder: Not Present Hallucinations: Denies Suicidal Ideation: Denies Homicidal Ideation: Denies Insight/Judgement: Poor Sleep: Poorly (agrees to resume a low dose of seroquel), Difficulty falling asleep Appetite: Good Muscle strength/Tone: Normal Gait/Station: Normal Psychiatric Findings - Problem List ([place] 1, 2,3) (1) Alcohol dependence with uncomplicated withdrawal Current Visit: Yes Status: Acute (2) Cannabis dependence Current Visit: Yes Status: Chronic (3) Nicotine dependence Current Visit: Yes Status: Chronic Qualifiers: Nicotine product type: cigarettes Substance use status: in withdrawal Qualified Code(s): F17.213 - Nicotine dependence, cigarettes, with withdrawal (4) Substance induced mood disorder Current Visit: Yes Status: Chronic (5) Insomnia Current Visit: Yes Status: Chronic - Initial Treatment Plan Initial Treatment Plan: Psychoeducation. Records ([facility]) reviewed. Sleep hygiene. Relapse prevention (MAT) discussed with patient. Seroquel 50 mg po hs. Ordered. Side effects/benefits discussed in session. Mr Pastrana has given verbal consent to MD. Gutierrez.
[2018-09-22] MEDS ORDERED: QUEtiapine FUMARATE 50 MG TABLET PO SCH (22:00)
[2018-09-22] MEDS: QUEtiapine FUMARATE 50 MG TABLET PO SCH (22:17)
[2018-09-22] MEDS: THIAMINE HCL 100 MG TABLET (FP) PO SCH (22:17)
[2018-09-22] MEDS: MELATONIN 5 MG TABLETS PO PRN (22:18)
[2018-09-23] MEDS: chlordiazePOXIDE HCL 25 MG CAPSULE PO SCH ×3 (05:47→17:56)
[2018-09-23] MEDS: ACETAMINOPHEN 325 MG TABLET (FP) PO PRN (05:48)
[2018-09-23] MEDS: NICOTINE 14 MG/24 HOURS TOPICAL PATCH TD SCH (10:31)
[2018-09-23] MEDS: PRENATAL VITAMINS W/ FOLIC ACID TABLET (FP) PO SCH (10:32)
[2018-09-23] MEDS: IBUPROFEN 400 MG TABLET (FP) PO PRN (10:33)
--- NOTE | 2018-09-23 12:04 | PN ---
S CIWA - CIWA Score Nausea/Vomitin Muscle Tremors: 2 Anxiety: 1-Mildly Anxious Agitation: 1-Slight > Activity Paroxysmal Sweats: 1-Minimal Palms Moist Orientation: 0-Oriented Tacttile Disturbances: 0-None Auditory Disturbances: 0-None Visual Disturbances: 1-Very Mild Sensitivity Headache: 1-Very Mild CIWA-Ar Total Score: 9 S Progress Note (SOAP) Subjective: GENERALIZED DISCOMFORT, POOR SLEEP, ANXIETY, GI UPSET Objective: 09/23/18 12:03 Laboratory Tests 09/22/18 09:00 Urine Color Yellow Urine Appearance Clear Urine pH 5.5 Ur Specific [place] 1.004 L Urine Protein Negative Urine Glucose (UA) Negative Urine Ketones Negative Urine Blood Negative Urine Nitrite Negative Urine Bilirubin Negative Urine Urobilinogen 0.2 Ur Leukocyte Esterase Negative Laboratory Tests 09/22/18 09:00 Urine Color Yellow Urine Appearance Clear Urine pH 5.5 Ur Specific [place] 1.004 L Urine Protein Negative Urine Glucose (UA) Negative Urine Ketones Negative Urine Blood Negative Urine Nitrite Negative Urine Bilirubin Negative Urine Urobilinogen 0.2 Ur Leukocyte Esterase Negative REMAINDER PENDING Vital Signs - 24 hr 09/22/18 09/22/18 09/22/18 12:30 13:43 14:30 Temperature 99.0 F Pulse Rate 91 H 78 96 H Respiratory 20 18 18 Rate Blood Pressure 165/95 09/22/18 09/22/18 09/22/18 15:00 15:30 16:00 Temperature Pulse Rate 96 H 96 H 94 H Respiratory 18 18 18 Rate Blood Pressure 09/22/18 09/22/18 09/22/18 16:30 17:00 17:30 Temperature Pulse Rate 72 90 92 H Respiratory 18 18 18 Rate Blood Pressure 09/22/18 09/22/18 09/22/18 18:00 18:01 18:30 Temperature 98.2 F Pulse Rate 89 82 86 Respiratory 19 16 18 Rate Blood Pressure 156/96 09/22/18 09/22/18 09/22/18 19:01 19:30 20:00 Temperature Pulse Rate 84 74 72 Respiratory 18 18 18 Rate Blood Pressure 09/22/18 09/22/18 09/22/18 20:30 21:00 21:39 Temperature 99.1 F Pulse Rate 88 98 H 74 Respiratory 18 18 16 Rate Blood Pressure 160/99 09/22/18 09/23/18 09/23/18 21:40 00:30 03:30 Temperature 99.1 F Pulse Rate 72 Respiratory 16 18 18 Rate Blood Pressure 171/96 H 09/23/18 09/23/18 09/23/18 06:30 06:40 09:25 Temperature 97.4 F L 97.4 F L Pulse Rate 65 84 Respiratory 18 18 18 Rate Blood Pressure 148/89 137/82 ALERT AMBUILATING ORIENTED Assessment: 09/23/18 12:03 ETOH DEP WITHDRAWAL Plan: CONTINUE DETOX PROTOCOL FU LABS
[2018-09-23] MEDS: chlordiazePOXIDE HCL 10 MG CAPSULE PO SCH (22:24)
[2018-09-23] MEDS: THIAMINE HCL 100 MG TABLET (FP) PO SCH (22:24)
[2018-09-23] MEDS: QUEtiapine FUMARATE 50 MG TABLET PO SCH (22:24)
[2018-09-23] MEDS ORDERED: chlordiazePOXIDE HCL 10 MG CAPSULE PO PRN (23:00)
[2018-09-24] MEDS: chlordiazePOXIDE HCL 10 MG CAPSULE PO SCH ×4 (05:39→22:31)
[2018-09-24] MEDS: ACETAMINOPHEN 325 MG TABLET (FP) PO PRN ×2 (05:40→10:51)
[2018-09-24] MEDS: PRENATAL VITAMINS W/ FOLIC ACID TABLET (FP) PO SCH (10:50)
[2018-09-24] MEDS: NICOTINE 14 MG/24 HOURS TOPICAL PATCH TD SCH (10:52)
--- NOTE | 2018-09-24 14:53 | PN ---
[facility] CIWA - CIWA Score Nausea/Vomitin Muscle Tremors: None Anxiety: 2 Agitation: 1-Slight > Activity Paroxysmal Sweats: No Perspiration Orientation: 0-Oriented Tacttile Disturbances: 2-Mild Itch/Numbness/Burn Auditory Disturbances: 1-Very Mild Visual Disturbances: 0-None Headache: 0-None Present CIWA-Ar Total Score: 9 S Progress Note (SOAP) Subjective: Diarrhea, Nausea / Vomiting, Fatigue. Objective: PATIENT A & O X 3, OBSERVED AMBULATING ON UNIT UNASSISTED. IN NO ACUTE DISTRESS. 09/24/18 14:54 Vital Signs Temperature 97.1 F L 09/24/18 13:18 Pulse Rate 91 H 09/24/18 13:18 Respiratory Rate 18 09/24/18 13:18 Blood Pressure 140/92 09/24/18 13:18 O2 Sat by Pulse Oximetry (%) Laboratory Tests 09/22/18 09:00 Urine Color Yellow Urine Appearance Clear Urine pH 5.5 Ur Specific [place] 1.004 L Urine Protein Negative Urine Glucose (UA) Negative Urine Ketones Negative Urine Blood Negative Urine Nitrite Negative Urine Bilirubin Negative Urine Urobilinogen 0.2 Ur Leukocyte Esterase Negative UA RESULTS NOTED. PATIENT REFUSED TO HAVE OTHER ADMISSION LABS DRAWN. Assessment: 09/24/18 14:55 WITHDRAWAL SYMPTOMS. Plan: CONTINUE DETOX. INCREASE DAILY PO FLUID / WATER INTAKE. PRN PEPTO-BISMOL PO FOR DIARRHEA. PRN ZOFRAN SL FOR NAUSEA/VOMITING.
[2018-09-24] MEDS: IBUPROFEN 400 MG TABLET (FP) PO PRN (17:38)
[2018-09-24] MEDS: THIAMINE HCL 100 MG TABLET (FP) PO SCH (22:31)
[2018-09-24] MEDS: QUEtiapine FUMARATE 50 MG TABLET PO SCH (22:32)
[2018-09-24] MEDS: MELATONIN 5 MG TABLETS PO PRN (22:32)
[2018-09-25] MEDS: ACETAMINOPHEN 325 MG TABLET (FP) PO PRN ×2 (05:06→14:03)
[2018-09-25] MEDS: NICOTINE 14 MG/24 HOURS TOPICAL PATCH TD SCH (10:32)
[2018-09-25] MEDS: PRENATAL VITAMINS W/ FOLIC ACID TABLET (FP) PO SCH (10:42)
[2018-09-25] MEDS: chlordiazePOXIDE HCL 10 MG CAPSULE PO SCH (10:42)
[2018-09-25 13:20] VITALS: BP 131/93; PULSE 94; TEMP 98.8
--- NOTE | 2018-09-25 13:37 | PN ---
[facility] CIWA - CIWA Score Nausea/Vomitin-Int. Nausea w/Dry Heave Muscle Tremors: None Anxiety: 3 Agitation: 1-Slight > Activity Paroxysmal Sweats: No Perspiration Orientation: 0-Oriented Tacttile Disturbances: 1-Very Mild Itch/Numbness Auditory Disturbances: 0-None Visual Disturbances: 0-None Headache: 0-None Present CIWA-Ar Total Score: 9 S Progress Note (SOAP) Subjective: Vomiting, Diarrhea, Fatigue. Objective: PATIENT A & O X 3, OBSERVED AMBULATING ON UNIT UNASSISTED. IN NO ACUTE DISTRESS. 09/25/18 13:38 Vital Signs Temperature 98.8 F 09/25/18 13:19 Pulse Rate 94 H 09/25/18 13:19 Respiratory Rate 20 09/25/18 13:19 Blood Pressure 131/93 09/25/18 13:19 O2 Sat by Pulse Oximetry (%) Laboratory Tests 09/22/18 09/25/18 09:00 05:08 POC Glucometer 88 Urine Color Yellow Urine Appearance Clear Urine pH 5.5 Ur Specific [place] 1.004 L Urine Protein Negative Urine Glucose (UA) Negative Urine Ketones Negative Urine Blood Negative Urine Nitrite Negative Urine Bilirubin Negative Urine Urobilinogen 0.2 Ur Leukocyte Esterase Negative UA RESULTS NOTED. PATIENT REFUSED TO HAVE OTHER ADMISSION LABS DRAWN. Assessment: 09/25/18 13:38 WITHDRAWAL SYMPTOMS. Plan: CONTINUE DETOX. INCREASE DAILY PO FLUID / WATER INTAKE. PRN PEPTO-BISMOL PO FOR DIARRHEA. PRN ZOFRAN SL FOR NAUSEA/VOMITING. CLONIDINE, 0.1 MG PO X 1 DOSE ORDERED FOR ELEVATED BLOOD PRESSURE (X LAST TWO READINGS; PATIENT REPORTED HISTORY OF HYPERTENSION BUT NO CURRENT TREATMENT ON DETOX ADMISSION) AND FOR GENERAL WITHDRAWAL SYMPTOMS. PATIENT SCHEDULED FOR DISCHARGE TOMORROW.
[2018-09-25] MEDS ORDERED: cloNIDine HCL 0.1 MG TABLET PO ONE (14:00)
--- NOTE | 2018-09-25 15:05 | DS ---
[facility] Detox Discharge Summary Admission Date: 09/21/18 Discharge Date: 09/25/18 - History Present History: Alcohol Dependence, Cannabis Dependence Additional Comments: PATIENT REPORTS THAT WITHDRAWAL / DETOX SYMPTOMS SUBSIDED SOMEWHAT DAY WENT ON AND THAT HE WOULD LIKE TO BE DISCHARGED AT THIS TIME. PATIENT NOTES THAT HE WILL GO HOME FOR TIME BEING TO ATTEND TO PERSONAL MATTER, THEN HE WILL RETURN WITHIN THE NEXT FEW DAYS TO APPLY FOR ADMISSION AT [facility] ( [place], [place]). PATIENT WAS DISCHARGED FORM DETOX UNIT IN STABLE MEDICAL CONDITION. Pertinent Past History: Nicotine Dependence, HTN, Bipolar Disorder, Insomnia, History Of Anemia, Depression. - Physical Exam Results Vital Signs: Vital Signs Temperature 98.8 F 09/25/18 13:19 Pulse Rate 94 H 09/25/18 13:19 Respiratory Rate 20 09/25/18 13:19 Blood Pressure 131/93 09/25/18 13:19 O2 Sat by Pulse Oximetry (%) Pertinent Admission Physical Exam Findings: WITHDRAWAL SYMPTOMS. Laboratory Tests 09/22/18 09/25/18 09:00 05:08 POC Glucometer 88 Urine Color Yellow Urine Appearance Clear Urine pH 5.5 Ur Specific [place] 1.004 L Urine Protein Negative Urine Glucose (UA) Negative Urine Ketones Negative Urine Blood Negative Urine Nitrite Negative Urine Bilirubin Negative Urine Urobilinogen 0.2 Ur Leukocyte Esterase Negative ADMISSION UA RESULTS NOTED. PATIENT REFUSED TO HAVE DETOX ADMISSION LABS DRAWN. - Treatment Hospital Course: Detox Protocol Followed, Detoxed Safely, Responded well, Discharged Condition Good Patient has Accepted a Rehab Referral to: PT. WILL RETURN IN NEXT FEW DAYS TO APPLY AT [facility]. - Medication Discharge Medications: Ambulatory Orders NK [No Known Home Medication] 09/07/18 - Diagnosis (1) Alcohol dependence with uncomplicated withdrawal Current Visit: Yes Status: Acute (2) Cannabis dependence Current Visit: Yes Status: Acute (3) Bipolar disorder Current Visit: Yes Status: Chronic Qualifiers: Active/Remission status: remission status unspecified Qualified Code(s): F31.9 - Bipolar disorder, unspecified (4) HTN (hypertension) Current Visit: Yes Status: Chronic Qualifiers: Hypertension type: essential hypertension Qualified Code(s): I10 - Essential (primary) hypertension (5) Insomnia Current Visit: Yes Status: Chronic Qualifiers: Insomnia type: unspecified Qualified Code(s): G47.00 - Insomnia, unspecified (6) Nicotine dependence Current Visit: Yes Status: Chronic Qualifiers: Nicotine product type: cigarettes Substance use status: in withdrawal Qualified Code(s): F17.213 - Nicotine dependence, cigarettes, with withdrawal (7) Substance induced mood disorder Current Visit: Yes Status: Chronic - AMA Did Patient Leave Against Medical Advice: No
== END 2018-09-25 03:20 | disposition home or self-care (01) | DRG 775 ==
LOC: YASAS 13:31 → Y3N 20:12
PROVIDERS: ADMIT Surgery; ATTEND Surgery
PROC: HZ2ZZZZ Detoxification Services for Substance Abuse Treatment (ICD-10-PCS; principal; 2018-09-21)
DX: F10.230 Alcohol dependence with withdrawal, uncomplicated (principal); F12.20 Cannabis dependence, uncomplicated; F17.210 Nicotine dependence, cigarettes, uncomplicated; F19.24 Other psychoactive substance dependence with psychoactive substance-induced mood disorder; F31.9 Bipolar disorder, unspecified; I10 Essential (primary) hypertension; G47.00 Insomnia, unspecified; Z86.2 Personal history of diseases of the blood and blood-forming organs and certain disorders involving the immune mechanism
CPT/HCPCS: 81003; 82962; J0735

== ENCOUNTER 2018-10-30 11:08 | Inpatient (IN) | payer OTHER | END 2018-11-03 09:57 | LOC: YASAS 11:08 → Y3N 14:11 ==

== ENCOUNTER 2019-01-15 17:56 | Inpatient (IN) | payer OTHER ==
[2019-01-15 19:27] VITALS: BMI 17.9
--- NOTE | 2019-01-15 20:40 | HP ---
CIWA Score Nausea/Vomitin Muscle Tremors: 4-Moderate,w/Arms Extend Anxiety: 0-No Anxiety, at Ease Agitation: 4-Moderately Restless (irritable) Paroxysmal Sweats: 3 Orientation: 1-Uncertain about Date Tacttile Disturbances: 2-Mild Itch/Numbness/Burn Auditory Disturbances: 0-None Visual Disturbances: 3-Moderate Sensitivity (bright lights) Headache: 4-Moderately Severe CIWA-Ar Total Score: 26 - Admission Criteria [facility]ASAS Guidelines: Admission for Medically Managed Detox: Requires at least one of the followin. CIWA greater than 12 2. Seizures within the past 24 hours 3. Delirium tremens within the past 24 hours 4. Hallucinations within the past 24 hours 5. Acute intervention needed for co occurring medical disorder 6. Acute intervention needed for co occurring psychiatric disorder 7. Severe withdrawal that cannot be handled at a lower level of care (continued vomiting, continued diarrhea, abnormal vital signs) requiring intravenous medication and/or fluids 8. Patient presents the following: CIWA greater than 12 Admission Criteria Met: Admission criteria met Admitting History and Physical - Smoking History Smoking history: Current some day smoker Have you smoked in the past 12 months: Yes Aproximately how many cigarettes per day: 3 - Alcohol/Substance Use Hx Alcohol Use: Yes Admission ROS S - HPI Chief Complaint: C/O WITHDRAWAL SX'S Allergies/Adverse Reactions: Allergies Allergy/AdvReac Type Severity Reaction Status Date / Time No Known Allergies Allergy Verified 01/15/19 19:19 History of Present Illness: HERE FOR ALCOHOL DETOX. SELF REFERRED. KNOWN TO THIS PROGRAM. LAST HERE 10/2018. PRESENTS WITH C/O WITHDRAWAL SX'S. SEEKING STABILIZATION. REPORTS DAILY ALCOHOL INTAKE. LAST USE EARLIER TODAY. 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 DENIES SEIZURES, SI/HI, DT'S. DENIES ANY SIGNIFICANT PERIOD OF CLEAN TIME. HOMELESS, UNEMPLOYED, DENIES LEGALS Exam Limitations: No Limitations - Ebola screening Have you traveled outside of the country in the last 21 days: No (N) Have you had contact with anyone from an Ebola affected area: No Do you have a fever: No - Review of Systems Constitutional: Chills, Loss of Appetite, Malaise, Night Sweats, Changes in sleep, Unintentional Wgt. Loss EENT: reports: Eye Pain (LEFT EYE SENSITIVITY TO LIGHT DUE TO SX), Hearing Loss ([place] LEFT EAR) Respiratory: reports: Shortness of Breath Cardiac: reports: No Symptoms Reported, Other (PEDAL EDEMA) GI: reports: Diarrhea, Nausea, Poor Appetite, Poor Fluid Intake, Vomiting : reports: No Symptoms Reported Musculoskeletal: reports: Back Pain, Joint Pain Integumentary: reports: No Symptoms Reported Neuro: reports: Headache, Tremors, Other (BLACK OUTS) Endocrine: reports: No Symptoms Reported Hematology: reports: Anemia (HX/O) Psychiatric: reports: Agitated, Anxious, Depressed Other Systems: Reviewed and Negative Patient History - Patient Medical History Hx Anemia: Yes (HX/O) Hx Asthma: No Hx Chronic Obstructive Pulmonary Disease (COPD): No Hx Cancer: No Hx Cardiac Disorders: No Hx Congestive Heart Failure: No Hx Hypertension: Yes Hx Hypercholesterolemia: Yes Hx Pacemaker: No HX Cerebrovascular Accident: No Hx Seizures: No Hx Dementia: No Hx Diabetes: No Hx Gastrointestinal Disorders: No Hx Liver Disease: No Hx Genitourinary Disorders: No Hx Sexually Transmitted Disorders: No Hx Renal Disease (ESRD): No Hx Thyroid Disease: No Hx Human Immunodeficiency Virus (HIV): No Hx Hepatitis C: No Hx Depression: Yes Hx Suicide Attempt: No Hx Bipolar Disorder: Yes Hx Schizophrenia: No Other Medical History: DENIES - Patient Surgical History Past Surgical History: Yes Hx Neurologic Surgery: No Hx Cataract Extraction: No Hx Cardiac Surgery: No Hx Lung Surgery: No Hx Breast Surgery: No Hx Breast Biopsy: No Hx Abdominal Surgery: No Hx Appendectomy: Yes Hx Cholecystectomy: No Hx Genitourinary Surgery: No Hx Section: No Hx Orthopedic Surgery: No Other Surgical History: tonsilectomy at age 7/left eye trauma in 2017, appendectomy Anesthesia Reaction: No - PPD History Previous Implant?: Yes Documented Results: Negative w/proof Implanted On Prior R Admission?: Yes Date: 10/28/17 Results: 0 mm PPD to be Administered?: Yes - Smoking Cessation Smoking history: Current some day smoker Have you smoked in the past 12 months: Yes Aproximately how many cigarettes per day: 3 Cigars Per Day: 0 Hx Chewing Tobacco Use: No Initiated information on smoking cessation: Yes 'Breaking Loose' booklet given: 01/15/19 - Substance & Tx. History Hx Alcohol Use: Yes Hx Substance Use: Yes Substance Use Type: Alcohol, Marijuana Hx Substance Use Treatment: Yes ([facility]) - Substances abused Alcohol Substance route: Oral Frequency: Daily Amount used: 2 to 4 cans of beer/ 24/OZ Age of first use: 22 Date of last use: 01/15/19 Marijuana/Hashish Substance route: Smoking Frequency: 3-6 times per week Amount used: 2 to 4 joints Age of first use: 10 Date of last use: 01/14/19 Admission Physical Exam [facility] - Vital Signs Vital Signs: Vital Signs - 24 hr 01/15/19 19:18 Temperature 97.1 F L Pulse Rate 87 Respiratory 16 Rate Blood Pressure 126/90 - Physical General Appearance: Yes: Mild Distress, Tremorous, Irritable, Anxious HEENTM: Yes: EOMI, Normocephalic, Normal Voice, ISIDRA, Pharynx Normal, Other ( POOR DENTITION, TONGUE FASICULATIONS) Respiratory: Yes: Chest Non-Tender, Lungs Clear, Normal Breath Sounds, No Respiratory Distress, No Accessory Muscle Use Neck: Yes: No masses,lesions,Nodules, Supple, Trachea in good position Breast: Yes: Breast Exam Deferred Cardiology: Yes: Regular Rhythm, S1, S2, Tachycardia Abdominal: Yes: Normal Bowel Sounds, Non Tender, Soft, Surgical Scar Genitourinary: Yes: Within Normal Limits Back: Yes: Normal Inspection Musculoskeletal: Yes: full range of Motion, Gait Steady Extremities: Yes: Normal Capillary Refill, Normal Range of Motion, Non-Tender, Tremors Neurological: Yes: Fully Oriented, Alert, Motor Strength 5/5, Depressed Affect Integumentary: Yes: Dry (FLAKY), Cold Lymphatic: Yes: Within Normal Limits - Diagnostic (1) Alcohol dependence with uncomplicated withdrawal Current Visit: Yes Status: Acute (2) Substance-induced sleep disorder Current Visit: Yes Status: Suspected (3) Bipolar disorder Current Visit: Yes Status: Chronic Qualifiers: Active/Remission status: remission status unspecified Qualified Code(s): F31.9 - Bipolar disorder, unspecified (4) Cannabis dependence, uncomplicated Current Visit: Yes Status: Chronic (5) GERD (gastroesophageal reflux disease) Current Visit: Yes Status: Chronic Qualifiers: Esophagitis presence: without esophagitis Qualified Code(s): K21.9 - Gastro -esophageal reflux disease without esophagitis (6) HTN (hypertension) Current Visit: Yes Status: Chronic Qualifiers: Hypertension type: essential hypertension Qualified Code(s): I10 - Essential (primary) hypertension (7) Nicotine dependence Current Visit: Yes Status: Chronic Qualifiers: Nicotine product type: cigarettes Substance use status: in withdrawal Qualified Code(s): F17.213 - Nicotine dependence, cigarettes, with withdrawal (8) Substance induced mood disorder Current Visit: Yes Status: Chronic Cleared for Admission [facility] - Detox or Rehab S Level of Care: Medically Managed Detox Regimen/Protocol: Librium Claeared for Rehab Admission: No Breathalyzer - Breathalyzer Breathalyzer: 0.173 Urine Drug Screen - Test Device Lot number: [id number] Expiration date: 09/07/20 - Control Is test valid?: Yes - Results Drug screen NEGATIVE: No Urine drug screen results: THC-Marijuana Inpatient Rehab Admission - Rehab Decision to Admit Inpatient rehab admission?: No
[2019-01-15] MEDS ORDERED: BISMUTH SUBSALICYLATE 524 MG/30 ML UD PO PRN (20:45)
[2019-01-15] MEDS ORDERED: METHOCARBAMOL 500 MG TABLET PO PRN (20:45)
[2019-01-15] MEDS ORDERED: MELATONIN 5 MG TABLETS PO PRN (20:45)
[2019-01-15] MEDS ORDERED: P-EPHED 60MG/TRIPROLIDI 2.5MG TABLET PO PRN (20:45)
[2019-01-15] MEDS ORDERED: MENTHOL/PHENOL 1 EACH UD MM PRN (20:45)
[2019-01-15] MEDS ORDERED: MAG HYDROX/AL HYDROX/SIMETH 30 ML UNIT-DOSE CUP PO PRN (20:45)
[2019-01-15] MEDS ORDERED: ACETAMINOPHEN 325 MG TABLET (FP) PO PRN (20:45)
[2019-01-15] MEDS ORDERED: hydrOXYzine PAMOATE 25 MG CAPSULE (FP) PO PRN (20:45)
[2019-01-15] MEDS ORDERED: MAGNESIUM CITRATE 300 ML BOTTLE PO PRN (20:45)
[2019-01-15] MEDS ORDERED: guaiFENesin 200 MG/10 ML 10 ML UNIT-DOSE CUPS PO PRN (20:45)
[2019-01-15] MEDS ORDERED: ONDANSETRON *ODT* 4 MG TABLET SL PRN (20:45)
[2019-01-15] MEDS ORDERED: NICOTINE POLACRILEX 2 MG GUM BUC PRN (20:45)
[2019-01-15] MEDS ORDERED: MAGNESIUM HYDROX 2400MG/30ML ORAL SUSPENSION 30 ML CUP PO PRN (20:45)
[2019-01-15] MEDS ORDERED: DICYCLOMINE HCL 10 MG CAPSULE PO PRN (20:45)
[2019-01-15] MEDS ORDERED: IBUPROFEN 400 MG TABLET (FP) PO PRN (20:45)
[2019-01-15] MEDS ORDERED: chlordiazePOXIDE HCL 10 MG CAPSULE PO PRN (20:45)
[2019-01-15] MEDS: chlordiazePOXIDE HCL 25 MG CAPSULE PO SCH (23:22)
[2019-01-15] MEDS: THIAMINE HCL 100 MG TABLET (FP) PO SCH (23:22)
[2019-01-16] MEDS: chlordiazePOXIDE HCL 25 MG CAPSULE PO SCH ×3 (06:21→21:54)
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
--- NOTE | 2019-01-16 10:57 | EKG ---
Test Reason : Blood Pressure : / mmHG Vent. Rate : 069 BPM Atrial Rate : 069 BPM P-R Int : 172 ms QRS Dur : 094 ms QT Int : 376 ms P-R-T Axes : 063 035 057 degrees QTc Int : 402 ms NORMAL SINUS RHYTHM NORMAL ECG WHEN COMPARED WITH ECG OF 26-OCT-2017 15:30, NO SIGNIFICANT CHANGE WAS FOUND Confirmed by RENETTA DUMAS, WILBERT ([id number]) on 01/16/2019 10:56:52 AM Referred By: JUSTINO DELGADILLO Confirmed By:WILBERT JACKSON MD
[2019-01-16] MEDS: PRENATAL VITAMINS W/ FOLIC ACID TABLET (FP) PO SCH (11:39)
[2019-01-16] MEDS: NICOTINE 14 MG/24 HOURS TOPICAL PATCH TD SCH (11:39)
[2019-01-16 11:56] LABS: HEMATOCRIT 36.4 % (35.4-49); HEMOGLOBIN 12.2 GM/dL (11.7-16.9); MCHC 33.5 g/dl (32.0-35.9); MEAN CELL VOLUME 98.3 fl (80-96); MEAN PLT VOLUME 9.2 fl (7.5-11.1); PLATELET COUNT 130 K/MM3 (134-434); RDW 13.8 % (11.9-15.9); WHITE BLOOD COUNT 5.5 K/mm3 (4.0-10.0)
[2019-01-16 12:06] LABS: BILIRUBIN,TOTAL 0.6 mg/dL (0.2-1); BLOOD UREA NITROGEN 9.4 mg/dL (7-18); CALCIUM 9.1 mg/dL (8.5-10.1); POTASSIUM 4.2 mmol/L (3.5-5.1); TOT PROT 8.4 g/dl (6.4-8.2)
--- NOTE | 2019-01-16 14:44 | PN ---
S CIWA - CIWA Score Nausea/Vomitin-No Nausea/No Vomiting Muscle Tremors: 3 Anxiety: 3 Agitation: 3 Paroxysmal Sweats: 3 Orientation: 0-Oriented Tacttile Disturbances: 0-None Auditory Disturbances: 0-None Visual Disturbances: 0-None Headache: 0-None Present CIWA-Ar Total Score: 12 S Progress Note (SOAP) Subjective: sweats shakes body aches interrupted sleep Objective: 01/16/19 14:43 Vital Signs Temperature 98.4 F 01/16/19 13:01 Pulse Rate 84 01/16/19 13:01 Respiratory Rate 18 01/16/19 13:01 Blood Pressure 145/88 01/16/19 13:01 O2 Sat by Pulse Oximetry (%) Laboratory Tests 01/16/19 01/16/19 09:25 09:25 WBC 5.5 RBC 3.70 L Hgb 12.2 Hct 36.4 MCV 98.3 H MCH 33.0 MCHC 33.5 RDW 13.8 Plt Count 130 L D MPV 9.2 Sodium 137 Potassium 4.2 Chloride 101 Carbon Dioxide 27 Anion Gap 8 BUN 9.4 Creatinine 1.0 Est GFR (CKD-EPI)AfAm 101.26 Est GFR (CKD-EPI)NonAf 87.37 Random Glucose 63 L Calcium 9.1 Total Bilirubin 0.6 AST 57 H ALT 37 Alkaline Phosphatase 134 H Total Protein 8.4 H Albumin 4.0 labs noted aaox3 ambulating no acute distress Assessment: 01/16/19 14:44 withdrawals Plan: continue detox increase fluids
[2019-01-16] MEDS: THIAMINE HCL 100 MG TABLET (FP) PO SCH (21:54)
[2019-01-16] MEDS ORDERED: SUVOREXANT 10 MG TABLET PO PRN (22:00)
[2019-01-17] MEDS: chlordiazePOXIDE 5 MG CAPSULE PO SCH ×3 (05:46→23:35)
[2019-01-17] MEDS: NICOTINE 14 MG/24 HOURS TOPICAL PATCH TD SCH (10:45)
[2019-01-17] MEDS: PRENATAL VITAMINS W/ FOLIC ACID TABLET (FP) PO SCH (10:46)
[2019-01-17] MEDS: ACETAMINOPHEN 325 MG TABLET (FP) PO PRN (10:46)
--- NOTE | 2019-01-17 14:20 | PN ---
S CIWA - CIWA Score Nausea/Vomitin-No Nausea/No Vomiting Muscle Tremors: 2 Anxiety: 2 Agitation: 2 Paroxysmal Sweats: 2 Orientation: 0-Oriented Tacttile Disturbances: 0-None Auditory Disturbances: 0-None Visual Disturbances: 0-None Headache: 0-None Present CIWA-Ar Total Score: 8 BHS Progress Note (SOAP) Subjective: sweats interrupted sleep Objective: 01/17/19 14:19 Vital Signs Temperature 96.9 F L 01/17/19 06:40 Pulse Rate 70 01/17/19 06:40 Respiratory Rate 18 01/17/19 06:40 Blood Pressure 134/83 01/17/19 06:40 O2 Sat by Pulse Oximetry (%) Laboratory Tests 01/16/19 01/16/19 01/16/19 09:25 09:25 09:25 WBC 5.5 RBC 3.70 L Hgb 12.2 Hct 36.4 MCV 98.3 H MCH 33.0 MCHC 33.5 RDW 13.8 Plt Count 130 L D MPV 9.2 Sodium 137 Potassium 4.2 Chloride 101 Carbon Dioxide 27 Anion Gap 8 BUN 9.4 Creatinine 1.0 Est GFR (CKD-EPI)AfAm 101.26 Est GFR (CKD-EPI)NonAf 87.37 Random Glucose 63 L Calcium 9.1 Total Bilirubin 0.6 AST 57 H ALT 37 Alkaline Phosphatase 134 H Total Protein 8.4 H Albumin 4.0 RPR Titer Nonreactive labs noted aaox3 ambulating no acute distress Assessment: 01/17/19 14:20 mild withdrawals Plan: continue detox increase fluids
[2019-01-17] MEDS: THIAMINE HCL 100 MG TABLET (FP) PO SCH (23:35)
[2019-01-18] MEDS ORDERED: chlordiazePOXIDE HCL 10 MG CAPSULE PO PRN
[2019-01-18] MEDS ORDERED: chlordiazePOXIDE HCL 10 MG CAPSULE PO SCH (05:00)
[2019-01-18] MEDS: ACETAMINOPHEN 325 MG TABLET (FP) PO PRN (06:03)
[2019-01-18 06:52] VITALS: BP 102/67; PULSE 97; TEMP 97.7
--- NOTE | 2019-01-18 10:03 | DS ---
[facility] Detox Discharge Summary Admission Date: 01/15/19 Discharge Date: 01/18/19 - History Present History: Alcohol Dependence, Cannabis Dependence - Physical Exam Results Vital Signs: Vital Signs Temperature 97.7 F 01/18/19 06:00 Pulse Rate 97 H 01/18/19 06:00 Respiratory Rate 16 01/18/19 06:00 Blood Pressure 102/67 01/18/19 06:00 O2 Sat by Pulse Oximetry (%) Pertinent Admission Physical Exam Findings: pt arrived in withdrawals Vital Signs Temperature 97.7 F 01/18/19 06:00 Pulse Rate 97 H 01/18/19 06:00 Respiratory Rate 16 01/18/19 06:00 Blood Pressure 102/67 01/18/19 06:00 O2 Sat by Pulse Oximetry (%) Laboratory Tests 01/16/19 01/16/19 01/16/19 09:25 09:25 09:25 WBC 5.5 RBC 3.70 L Hgb 12.2 Hct 36.4 MCV 98.3 H MCH 33.0 MCHC 33.5 RDW 13.8 Plt Count 130 L D MPV 9.2 Sodium 137 Potassium 4.2 Chloride 101 Carbon Dioxide 27 Anion Gap 8 BUN 9.4 Creatinine 1.0 Est GFR (CKD-EPI)AfAm 101.26 Est GFR (CKD-EPI)NonAf 87.37 Random Glucose 63 L Calcium 9.1 Total Bilirubin 0.6 AST 57 H ALT 37 Alkaline Phosphatase 134 H Total Protein 8.4 H Albumin 4.0 RPR Titer Nonreactive pt is aaox3 ambulating no acute distress no s/s of withdrawals - Treatment Hospital Course: Detox Protocol Followed, Detoxed Safely, Responded well, Discharged Condition Good, Rehab Referral Accepted Patient has Accepted a Rehab Referral to: pt declined rehab; referral provided - Medication Discharge Medications: Ambulatory Orders NK [No Known Home Medication] 09/07/18 - Diagnosis (1) Alcohol dependence with uncomplicated withdrawal Current Visit: Yes Status: Chronic (2) Cannabis dependence, uncomplicated Current Visit: Yes Status: Chronic (3) Substance induced mood disorder Current Visit: Yes Status: Acute (4) Substance-induced sleep disorder Current Visit: Yes Status: Acute (5) Bipolar disorder Current Visit: Yes Status: Chronic Qualifiers: Active/Remission status: remission status unspecified Qualified Code(s): F31.9 - Bipolar disorder, unspecified (6) GERD (gastroesophageal reflux disease) Current Visit: Yes Status: Chronic Qualifiers: Esophagitis presence: without esophagitis Qualified Code(s): K21.9 - Gastro -esophageal reflux disease without esophagitis (7) HTN (hypertension) Current Visit: Yes Status: Chronic Qualifiers: Hypertension type: essential hypertension Qualified Code(s): I10 - Essential (primary) hypertension (8) Nicotine dependence Current Visit: Yes Status: Chronic Qualifiers: Nicotine product type: cigarettes Substance use status: uncomplicated Qualified Code(s): F17.210 - Nicotine dependence, cigarettes, uncomplicated (9) Elevated liver enzymes Current Visit: Yes Status: Acute (10) Anemia Current Visit: No Status: Chronic Qualifiers: Anemia type: unspecified type Qualified Code(s): D64.9 - Anemia, unspecified (11) History of depression Current Visit: No Status: Chronic (12) Insomnia Current Visit: No Status: Chronic Qualifiers: Insomnia type: unspecified Qualified Code(s): G47.00 - Insomnia, unspecified - AMA Did Patient Leave Against Medical Advice: No
[2019-01-19] MEDS ORDERED: chlordiazePOXIDE HCL 10 MG CAPSULE PO ONE (05:00)
== END 2019-01-18 09:32 | disposition home or self-care (01) | DRG 775 ==
LOC: YASAS 17:56 → Y6N 21:20
PROVIDERS: ADMIT Allergy & Immunology; ATTEND Allergy & Immunology
PROC: HZ2ZZZZ Detoxification Services for Substance Abuse Treatment (ICD-10-PCS; principal; 2019-01-15)
DX: F10.230 Alcohol dependence with withdrawal, uncomplicated (principal); F12.20 Cannabis dependence, uncomplicated; F17.210 Nicotine dependence, cigarettes, uncomplicated; F19.282 Other psychoactive substance dependence with psychoactive substance-induced sleep disorder; F19.24 Other psychoactive substance dependence with psychoactive substance-induced mood disorder; F31.9 Bipolar disorder, unspecified; D64.9 Anemia, unspecified; G47.00 Insomnia, unspecified; I10 Essential (primary) hypertension; K21.9 Gastro-esophageal reflux disease without esophagitis; R94.5 Abnormal results of liver function studies; H91.92 Unspecified hearing loss, left ear; Z59.0 Homelessness
CPT/HCPCS: 36415; 80053; 85027; 86593; 93005; 93010